=== PATIENT | male | born 1955 | race Caucasian/White ===

== ENCOUNTER 2020-12-21 11:38 | Outpatient (REF) | payer MEDICARE, OTHER, SELFPAY ==
[2020-12-21 13:52] LABS: Alanine Aminotransferase 15 U/L (0-40); Albumin Level 4.2 g/dL (3.5-5.0); Alkaline Phosphatase 78 U/L (39-117); Anion Gap 10 (12-20); Aspartate Amino Transferase 20 U/L (5-37); Bilirubin Total 1.3 mg/dL (0.0-1.0); Blood Urea Nitrogen 18 mg/dL (9-16); Calcium 9.4 mg/dL (8.4-10.2); Carbon Dioxide 32 mmol/L (22-29); Chloride 102 mmol/L (96-108); Estimated Glomerular Filt Rate > 60; Glucose Fasting 106 mg/dL (60-99); Potassium 4.3 mmol/L (3.3-5.1); Rheumatoid Factor < 15.0 IU/mL (<15.0); Sodium 140 mmol/L (135-145); Total Protein 6.7 g/dL (6.5-8.0)
[2020-12-21 14:57] LABS: Erythrocyte Sedimentation Rate 2 MM/HR (0-15)
[2020-12-21 15:16] LABS: Creatinine Urine 282.03 mg/dL; Microalbum/Creatinine Ratio Ur 2.4 ug/mg cr
[2020-12-22 11:37] LABS: Cyclic Citrullinated Peptide <16 UNITS
== END 2020-12-21 11:39 | disposition home or self-care (01) ==
LOC: HO.WFDLDS 11:38
PROVIDERS: Visit Provider Family Medicine
DX: Z00.00 Encounter for general adult medical examination without abnormal findings (principal); R73.01 Impaired fasting glucose; M25.549 Pain in joints of unspecified hand
CPT/HCPCS: 36415; 80053; 82043; 85652; 86200; 86431

== ENCOUNTER 2021-03-07 16:10 | Outpatient (REF) | payer MEDICARE, OTHER, SELFPAY ==
--- NOTE | ~2021-03-07 | XR_ITS ---
EXAMINATION: XR KNEE, RIGHT CLINICAL INFORMATION: Pain COMPARISON: None TECHNIQUE: 2 views of of the right knee. FINDINGS: Bone alignment is normal. No fracture or dislocation is seen. There is mild medial femoral tibial joint space narrowing. Joint spaces are otherwise normal. There is no joint effusion. XR/XR knee RT 2V IMPRESSION: Mild medial femoral tibial joint space narrowing.
== END 2021-03-07 16:11 | disposition home or self-care (01) ==
LOC: HO.XRAY 16:10
PROVIDERS: PCP Family Medicine; Visit Provider Family Medicine
DX: M25.561 Pain in right knee (principal)
CPT/HCPCS: 73560

== ENCOUNTER 2021-05-17 10:44 | Emergency (ER) | payer MEDICARE, OTHER, SELFPAY ==
--- NOTE | ~2021-05-17 | CT_ITS ---
EXAMINATION: CT ABDOMEN AND PELVIS WITHOUT CONTRAST CLINICAL INFORMATION: Left flank pain. Nausea. COMPARISON: None TECHNIQUE: Multidetector volumetric imaging was performed from the superior aspect of the liver through the pubic symphysis. Sagittal and coronal reformatted images were obtained on the technologist's workstation. This CT examination was performed using dose optimization techniques as appropriate, variously including the following: *Automated exposure control *Adjustment of mA and/or kV according to patient size (this includes techniques or standardized protocols for targeted exams where dose is matched to indication/reason for exam; i.e. extremities or head) *Use of iterative reconstruction technique DLP: 505 mGy-cm FINDINGS: LUNG BASES: The visualized lung bases are clear. The descending thoracic aorta appears tortuous. LIVER, GALLBLADDER, AND BILIARY TREE: The liver is normal in size, shape, and attenuation. No focal hepatic lesion or biliary ductal dilatation is present. The gallbladder is unremarkable with no evidence of radiopaque gallstones, gallbladder wall thickening, or obvious pericholecystic inflammatory changes. PANCREAS: There is fatty infiltration of the head and body the pancreas. Pancreas is otherwise unremarkable. SPLEEN: Unremarkable. ADRENAL GLANDS: Unremarkable. KIDNEYS AND URETERS: The kidneys are normal in size, shape, and attenuation. No hydronephrosis, hydroureter, or calculi seen. No perinephric stranding. BLADDER: Unremarkable. GASTROINTESTINAL TRACT: The small and large bowel are unremarkable. The appendix is is not seen. The stomach is unremarkable. ABDOMINAL WALL: There is a small umbilical hernia containing fat. LYMPH NODES: Normal. VASCULAR: Unremarkable. PELVIC VISCERA: Unremarkable. OSSEOUS STRUCTURES: There are degenerative changes of the spine. CT/CT abdomen pelvis wo con IMPRESSION: No stone or hydronephrosis seen.
[2021-05-17 11:27] VITALS: BP 135/72; PULSE 58; TEMP 35.2; O2SAT 99; BMI 26.6
--- NOTE | 2021-05-17 14:57 | ECG_ITS ---
Test Reason : GEN MED Blood Pressure : / mmHG Vent. 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
--- NOTE | 2021-05-17 14:58 | ED_ITS ---
HPI - General Adult General Chief complaint: General Medical Stated complaint: flank pain, nausea, weakness Time Seen by Provider: 05/17/21 14:51 Source: patient and family Mode of arrival: ambulatory Limitations: no limitations History of Present Illness HPI narrative: 65 y/o male with history of GERD presents to the ER from home c/o acute onset of severe left sided flank pain that awoke him from sleep at 8:30am. He reports it is throbbing and intermittently is very sharp and goes from a 7/10 to 10/10. It is associated with nausea but no vomiting. He has not eaten yet today due to the pain. He is belching frequently. When the pain started he took motrin for possible muscle spasm as well as prilosec and TUMS for indigestion. He had some chest discomfort with belching but no chest pain. No SOB, diaphoresis. The pain is located in his left middle back and shoots through to the front of his abdomen. It is worse with movement and he cannot find a comfortable position. He denies urinary symptoms, fever, chills, diarrhea. Last BM yesterday and was normal. 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 MD complaint: left flank pain Onset (ago): hour(s) (7) Location: abdomen Radiation: abdomen Severity: severe Severity scale (1-10): 10 Quality: stabbing and sharp Pain Consistency: constant Relieving factors: none Exacerbating factors: movement Associated symptoms: loss of appetite and nausea/vomiting Treatments prior to arrival: none Related Data Home Medications Medication Instructions Recorded Confirmed omeprazole 20 mg capsule,delayed 20 mg PO DAILY 12/21/20 release Previous Rx's Medication Instructions Recorded betamethasone valerate 0.1 % 1 appl TOPICAL BID 14 Days #45 g 03/07/21 topical cream ibuprofen 800 mg tablet 800 mg PO TID PRN 30 Days #90 tab 04/06/21 sildenafil 100 mg tablet 100 mg PO DAILY PRN 28 Days #10 tab 04/26/21 cyclobenzaprine 10 mg PO TID PRN #10 tab 05/17/21 hydrocodone-acetaminophen 1 tab PO Q8H PRN #5 tab 05/17/21 ibuprofen 600 mg PO Q8H PRN #15 tab 05/17/21 lidocaine [Lidoderm] 1 patch TOPICAL DAILY #15 ea 05/17/21 Allergies Allergy/AdvReac Type Severity Reaction Status Date / Time bee venom protein (honey bee) Allergy Unknown swelling Verified 03/07/21 13:25 Review of Systems Review of Systems: Constitutional: No Fever, No Chills ENT/Mouth: No sore throat, No Rhinorrhea, No Swallowing Difficulty Cardiovascular: No Chest Pain, No SOB, No Orthopnea, No Edema Respiratory: No Cough, No Sputum, No Wheezing, No dyspnea Gastrointestinal: + Nausea, No Vomiting, No Diarrhea, + abdominal Pain, No Hematochezia, No Melena Genitourinary: No Dysuria, No Urinary Frequency, No Hematuria Musculoskeletal: No joint pain, No Myalgias Skin: No Skin Lesions, No rash Neuro: No Weakness, No Numbness, No Dizziness, No Headache Psych: No Anxiety/Panic, No Depression Heme/Lymph: No Bruising, No Lymphadenopathy Endocrine: No Polyuria, No Polydipsia PMFSH Past Medical History Attestation statement: The following information was validated with the patient. Medical History HTN (hypertension) Surgical History (Updated 12/14/20 @ 12:29 by KEEGAN Hutchinson, [employer]) History of sinus surgery History of surgery History of tonsillectomy Family History Family History (Updated 12/14/20 @ 12:31 by Jackie Gibbs, KEEGAN, [employer]PLIER) Father Leukemia CVD (cardiovascular disease) Mother Leukemia Sister No problems noted. Son No problems noted. Son No problems noted. Daughter No problems noted. Brother Stroke Brother No problems noted. Brother No problems noted. Brother No problems noted. Brother No problems noted. Social History Social History Advance Directives: No Advance Directives Information Provided: Yes Physical Exam Vital Signs: Vital Signs: Last Vital Signs Temp 95.4 F L 05/17/21 11:27 Pulse 58 05/17/21 11:27 BP 135/72 05/17/21 11:27 Pulse Ox 99 05/17/21 11:27 Body Mass Index 26.6 Appearance: Alert. Oriented X3. No acute distress. Eyes: Pupils equal, round and reactive to light. ENT: Pharynx normal. Neck: Normal inspection. Neck supple. CVS: Normal heart rate and rhythm. Pulses normal. Respiratory: No respiratory distress. Breath sounds normal. Abdomen: Soft and nontender. +BS x4. Left sided CVA tenderness. Skin: Skin warm and dry. Normal skin color. Normal skin turgor. No rashes. Extremities: No lower extremity edema. Neuro: Oriented X 3. No motor deficit. No sensory deficit. Course Course Course Narrative: 65 y/o male presenting with 7 hours of left sided flank pain associated with indigestion and nausea. Will get labs, EKG and CT scan for further evaluation. Pain currently 05/14. IVF, morphine and zofran ordered for now. Will reassess. Dispo pending results and improvement. Suspect nephrolithasis vs MSK pain. Reevaluation(s) Reevaluation #1: Labs are normal. CT scan is normal. EKG ok and trop negative. Pain is most likely MSK in nature. Will treat with NSAID, muscle relaxer, lidoderm and PRN vicoden. Recommend outpatient follow up. Patient agrees with plan. Medical Decision Making Lab Data Result diagrams: 05/17/21 15:14 05/17/21 15:14 Labs: Lab Results 05/17/21 05/17/21 05/17/21 Range/Units 15:14 15:14 15:14 WBC 7.1 (4.8-10.8) X10*3/uL RBC 5.27 (4.60-5.80) X10*6/uL Hgb 14.9 (14.0-18.0) g/dl Hct 44.8 (42-52) % MCV 85.0 (80-98) fL MCH 28.3 (27.0-33.0) pg MCHC 33.3 (31.0-36.0) g/dl RDW 14.6 (11.0-16.0) % Plt Count 262 (160-400) X10*3/uL MPV 9.6 (9.4-12.4) fL Immature Gran % (Auto) 0.1 (0.0-0.4) % Neut % (Auto) 85.6 H (45-73) % Lymph % (Auto) 9.7 L (20-40) % [place] % (Auto) 4.2 (2-11) % Eos % (Auto) 0.1 (0-4) % Baso % (Auto) 0.3 (0-2) % Lymph # (Auto) 0.7 L (1.2-4.9) X10*3/uL [place] # (Auto) 0.3 (0.1-1.2) X10*3/uL Eos # (Auto) 0.0 (0.0-0.4) X10*3/uL Baso # (Auto) 0.0 (0.0-0.2) X10*3/uL Abs Immat Gran (auto) 0.01 (0.00-0.03) X10*3/uL Absolute Neuts (auto) 6.1 (2.0-8.3) X10*3/uL Absolute Nucleated RBC 0.000 (0.0-0.012) X10*3/uL Nucleated RBC % (auto) 0.0 (0.0-0.2) /100WBC Sodium 138 (135-145) mmol/L Potassium 4.7 (3.3-5.1) mmol/L Chloride 103 (96-108) mmol/L Carbon Dioxide 23 (22-29) mmol/L Anion Gap 17 (12-20) BUN 19 H (9-16) mg/dL Creatinine 0.94 (0.5-1.4) mg/dL Estim Creat Clear Calc 76.2 Estimated GFR > 60 Random Glucose 113 (60-115) mg/dL Calcium 9.9 (8.4-10.2) mg/dL Magnesium 2.0 (1.6-2.6) mg/dL Total Bilirubin 1.9 H (0.0-1.0) mg/dL Direct Bilirubin 0.6 H (0.0-0.5) mg/dL AST 25 (5-37) U/L ALT 16 (0-40) U/L Alkaline Phosphatase 78 (39-117) U/L Troponin I High Sens < 3.5 (<3.5-35.0) ng/L Total Protein 6.9 (6.5-8.0) g/dL Albumin 4.2 (3.5-5.0) g/dL Urine Color Urine Appearance Urine pH (5.0-8.0) Ur Specific [place] (1.005-1.025) Urine Protein (NEG-TRACE) MG/DL Urine Glucose (UA) (NEG) MG/DL Urine Ketones (NEG) MG/DL Urine Blood (NEG) Urine Nitrite (NEG) Ur Leukocyte Esterase (NEG) 05/17/21 Range/Units 16:42 WBC (4.8-10.8) X10*3/uL RBC (4.60-5.80) X10*6/uL Hgb (14.0-18.0) g/dl Hct (42-52) % MCV (80-98) fL MCH (27.0-33.0) pg MCHC (31.0-36.0) g/dl RDW (11.0-16.0) % Plt Count (160-400) X10*3/uL MPV (9.4-12.4) fL Immature Gran % (Auto) (0.0-0.4) % Neut % (Auto) (45-73) % Lymph % (Auto) (20-40) % [place] % (Auto) (2-11) % Eos % (Auto) (0-4) % Baso % (Auto) (0-2) % Lymph # (Auto) (1.2-4.9) X10*3/uL [place] # (Auto) (0.1-1.2) X10*3/uL Eos # (Auto) (0.0-0.4) X10*3/uL Baso # (Auto) (0.0-0.2) X10*3/uL Abs Immat Gran (auto) (0.00-0.03) X10*3/uL Absolute Neuts (auto) (2.0-8.3) X10*3/uL Absolute Nucleated RBC (0.0-0.012) X10*3/uL Nucleated RBC % (auto) (0.0-0.2) /100WBC Sodium (135-145) mmol/L Potassium (3.3-5.1) mmol/L Chloride (96-108) mmol/L Carbon Dioxide (22-29) mmol/L Anion Gap (12-20) BUN (9-16) mg/dL Creatinine (0.5-1.4) mg/dL Estim Creat Clear Calc Estimated GFR Random Glucose (60-115) mg/dL Calcium (8.4-10.2) mg/dL Magnesium (1.6-2.6) mg/dL Total Bilirubin (0.0-1.0) mg/dL Direct Bilirubin (0.0-0.5) mg/dL AST (5-37) U/L ALT (0-40) U/L Alkaline Phosphatase (39-117) U/L Troponin I High Sens (<3.5-35.0) ng/L Total Protein (6.5-8.0) g/dL Albumin (3.5-5.0) g/dL Urine Color YELLOW Urine Appearance CLEAR Urine pH 6.0 (5.0-8.0) Ur Specific [place] 1.025 (1.005-1.025) Urine Protein NEG (NEG-TRACE) MG/DL Urine Glucose (UA) NEG (NEG) MG/DL Urine Ketones 15 (NEG) MG/DL Urine Blood NEG (NEG) Urine Nitrite NEG (NEG) Ur Leukocyte Esterase NEG (NEG) ECG Data Attestation: I personally reviewed and interpreted this ECG as follows: Interpretation: sinus bradycardia, HR 52 bpm, normal ME interval, isolated t- wave inversion in lead III, no ST segment elevations or depressions. Discharge Plan Discharge Clinical Impression: Acute left-sided thoracic back pain Patient Disposition: Home, Self-Care Instructions: Muscle Spasm (ED), Back Pain (ED) Additional Instructions: Your lab workup today was normal. Your CT scan was also normal. It is most likely that your pain is muscular in nature. Recommend REST. No bending, lifting or twisting. Use ice several times per day for 20 minutes at a time for the next 48 hours and then change to heat. Take medications as prescribed to help with pain and discomfort. Follow up with your Primary Care Doctor this week. If your pain worsens, if you develop any new or worsening symptoms call 911 or come back to the ER for further evaluation. Prescriptions: New cyclobenzaprine 10 mg tablet 10 mg PO TID PRN (Reason: muscle spasm) Qty: 10 RF: 0 ibuprofen 600 mg tablet 600 mg PO Q8H PRN (Reason: pain) Qty: 15 RF: 0 lidocaine [Lidoderm] 5 % adhesive patch,medicated 1 patch topical DAILY Qty: 15 RF: 0 hydrocodone-acetaminophen 10-325 mg tablet 1 tab PO Q8H PRN (Reason: pain) Qty: 5 RF: 0 No Action ibuprofen 800 mg tablet 800 mg PO TID PRN (Reason: pain) 30 Days Qty: 90 RF: 1 sildenafil 100 mg tablet 100 mg PO DAILY PRN (Reason: sexual activity) 28 Days Qty: 10 RF: 6 omeprazole 20 mg capsule,delayed release(DR/EC) 20 mg PO DAILY RF: 0 betamethasone valerate 0.1 % cream 1 appl topical BID 14 Days Qty: 45 RF: 0 Referrals: Mo Alston MD [Primary Care Provider] - 2 days
[2021-05-17] MEDS: ondansetron HCL 4 MG/2 ML VIAL IVPUSH (15:20)
[2021-05-17] MEDS: Morphine Sulfate 4 MG/ML CARTRIDGE IVPUSH (15:20)
[2021-05-17] MEDS: 0.9 % Sodium Chloride 1,000 ML 999 ML IVCONT (15:21)
[2021-05-17 15:23] LABS: MANUAL DIFF FLAG NO
[2021-05-17 15:28] LABS: Basophils Percent Auto 0.3 % (0-2); Eosinophils Percent Auto 0.1 % (0-4); Hematocrit 44.8 % (42-52); Hemoglobin 14.9 g/dl (14.0-18.0); Imm Gran Abs Auto 0.01 X10*3/uL (0.00-0.03); Imm Gran Pct Auto 0.1 % (0.0-0.4); Lymphocytes Absolute Auto 0.7 X10*3/uL (1.2-4.9); Lymphocytes Percent Auto 9.7 % (20-40); Mean Corpuscular HGB Conc 33.3 g/dl (31.0-36.0); Mean Corpuscular Hemoglobin 28.3 pg (27.0-33.0); Mean Platelet Volume 9.6 fL (9.4-12.4); Monocytes Absolute Auto 0.3 X10*3/uL (0.1-1.2); Monocytes Percent Auto 4.2 % (2-11); Neutrophils Absolute Auto 6.1 X10*3/uL (2.0-8.3); Neutrophils Percent Auto 85.6 % (45-73); Platelet Count 262 X10*3/uL (160-400); Red Blood Count 5.27 X10*6/uL (4.60-5.80); Red Cell Distribution Width 14.6 % (11.0-16.0); White Blood Count 7.1 X10*3/uL (4.8-10.8)
[2021-05-17 16:01] LABS: Troponin-I High Sensitivity < 3.5 ng/L (<3.5-35.0)
[2021-05-17 16:10] LABS: Alanine Aminotransferase 16 U/L (0-40); Albumin Level 4.2 g/dL (3.5-5.0); Alkaline Phosphatase 78 U/L (39-117); Anion Gap 17 (12-20); Aspartate Amino Transferase 25 U/L (5-37); Bilirubin Direct 0.6 mg/dL (0.0-0.5); Bilirubin Total 1.9 mg/dL (0.0-1.0); Blood Urea Nitrogen 19 mg/dL (9-16); Calcium 9.9 mg/dL (8.4-10.2); Carbon Dioxide 23 mmol/L (22-29); Chloride 103 mmol/L (96-108); Creatinine Clr Calc Pharmacy 76.2; Estimated Glomerular Filt Rate > 60; Glucose Random 113 mg/dL (60-115); Potassium 4.7 mmol/L (3.3-5.1); Sodium 138 mmol/L (135-145); Total Protein 6.9 g/dL (6.5-8.0)
[2021-05-17] MEDS: Lidocaine 4 % Patch ADH..PATCH 1 PATCH TRANSDERMA (16:44)
[2021-05-17] MEDS: Ketorolac Tromethamine 30 MG/ML VIAL IVPUSH (16:44)
[2021-05-17 16:52] LABS: Glucose Urine UA NEG (NEG); Leukocyte Esterase Urine NEG (NEG); Nitrite Urine NEG (NEG); Specific Gravity - Urine 1.025 (1.005-1.025); Urine Blood NEG (NEG); Urine Ketones 15 MG/DL (NEG); Urine Protein NEG (NEG-TRACE)
[2021-05-17 16:53] LABS: Appearance Urine CLEAR; Color Urine YELLOW
[2021-05-17 17:14] VITALS: BP 129/77; PULSE 63; RESP 15; TEMP 36.6; O2SAT 99
== END 2021-05-17 17:37 | disposition home or self-care (01) ==
PROVIDERS: Physician Assistant; Emergency Provider Emergency Medicine; PCP Family Medicine
DX: M54.6 Pain in thoracic spine (principal); I10 Essential (primary) hypertension
CPT/HCPCS: 36415; 74176; 80048; 80076; 81003; 83735; 84484; 85025; 93005; 96361; 96374; 96375; 99284; J1885; J2270; J2405

== ENCOUNTER 2021-06-07 10:30 | Outpatient (REF) | payer MEDICARE, OTHER, SELFPAY | END 2021-06-07 10:31 | disposition home or self-care (01) | LOC: HO.10HDLNP 10:30 | PROVIDERS: Visit Provider Family Medicine | DX: Z13.89 Encounter for screening for other disorder (principal) ==

== ENCOUNTER → 2021-11-08 10:38 | Outpatient (BNVA) | payer MEDICARE, OTHER, SELFPAY | PROVIDERS: PCP Family Medicine; Referring Provider Family Medicine; Visit Provider Psychiatry & Neurology Neurology | DX: G47.30 Sleep apnea, unspecified (principal); R06.83 Snoring | CPT/HCPCS: 99202 ==

== ENCOUNTER → 2021-11-14 14:55 | Outpatient (REF) | payer MEDICARE, OTHER, SELFPAY | LOC: HO.SL 14:55 | PROVIDERS: PCP Family Medicine; Visit Provider Psychiatry & Neurology Neurology | DX: G47.33 Obstructive sleep apnea (adult) (pediatric) (principal); G47.30 Sleep apnea, unspecified | CPT/HCPCS: 95806 ==

== ENCOUNTER 2021-11-30 10:02 | Outpatient (REF) | payer MEDICARE, OTHER, SELFPAY ==
[2021-11-30 10:59] LABS: Estimated Average Glucose 114 mg/dL; Hemoglobin A1c % 5.6 %
[2021-11-30 11:10] LABS: Alanine Aminotransferase 21 U/L (0-40); Albumin Level 4.2 g/dL (3.5-5.0); Alkaline Phosphatase 83 U/L (39-117); Anion Gap 11 (12-20); Aspartate Amino Transferase 25 U/L (5-37); Bilirubin Total 1.3 mg/dL (0.0-1.0); Blood Urea Nitrogen 21 mg/dL (9-16); Calcium 9.6 mg/dL (8.4-10.2); Carbon Dioxide 31 mmol/L (22-29); Chloride 101 mmol/L (96-108); Estimated Glomerular Filt Rate > 60; Glucose Random 102 mg/dL (60-115); Potassium 3.9 mmol/L (3.3-5.1); Sodium 139 mmol/L (135-145); Total Protein 6.7 g/dL (6.5-8.0)
[2021-11-30 14:47] LABS: Creatinine Urine 246.57 mg/dL; Microalbum/Creatinine Ratio Ur 2.8 ug/mg cr
== END 2021-11-30 10:03 | disposition home or self-care (01) ==
LOC: HO.10HDL 10:02
PROVIDERS: Visit Provider Family Medicine
DX: R73.01 Impaired fasting glucose (principal); I10 Essential (primary) hypertension
CPT/HCPCS: 36415; 80053; 82043; 83036

== ENCOUNTER → 2022-01-10 15:22 | Outpatient (BNVA) | payer MEDICARE, OTHER, SELFPAY | PROVIDERS: PCP Family Medicine; Referring Provider Family Medicine; Visit Provider Psychiatry & Neurology Neurology | DX: G47.33 Obstructive sleep apnea (adult) (pediatric) (principal) | CPT/HCPCS: 99212 ==

== ENCOUNTER 2022-03-08 12:33 | Outpatient (REF) | payer MEDICARE, OTHER, SELFPAY ==
[2022-03-08 13:49] LABS: Cholesterol 180 mg/dL; HDL Cholesterol 44 mg/dL; LDL Cholesterol Calculated 101 mg/dl; Triglycerides 177 mg/dL
== END 2022-03-08 12:34 | disposition home or self-care (01) ==
LOC: HO.10HDL 12:33
PROVIDERS: Visit Provider Family Medicine
DX: Z00.00 Encounter for general adult medical examination without abnormal findings (principal)
CPT/HCPCS: 36415; 80061

== ENCOUNTER → 2022-07-18 14:51 | Outpatient (BNVA) | payer MEDICARE, OTHER, SELFPAY | PROVIDERS: PCP Family Medicine; Visit Provider Psychiatry & Neurology Neurology | DX: G47.33 Obstructive sleep apnea (adult) (pediatric) (principal) | CPT/HCPCS: 99212 ==

== ENCOUNTER 2022-11-27 11:15 | Outpatient (REF) | payer MEDICARE, OTHER, SELFPAY ==
[2022-11-27 11:42] LABS: Appearance Urine Clear; Color Urine Yellow; Glucose Urine UA Negative (Negative); Leukocyte Esterase Urine Negative (Negative); Nitrite Urine Negative (Negative); Specific Gravity - Urine 1.025 (1.005-1.025); Urine Blood Negative (Negative); Urine Ketones Negative (Negative); Urine Protein Negative (Neg-Trace)
[2022-11-27 13:24] LABS: Creatinine Urine 143.92 mg/dL; Microalbumin Urine < 5.0 mg/L
[2022-11-27 13:32] LABS: Alanine Aminotransferase 19 U/L (0-40); Albumin Level 4.1 g/dL (3.5-5.0); Alkaline Phosphatase 74 U/L (39-117); Anion Gap 12 (12-20); Aspartate Amino Transferase 22 U/L (5-37); Bilirubin Total 1.5 mg/dL (0.0-1.0); Blood Urea Nitrogen 25 mg/dL (9-16); Calcium 9.3 mg/dL (8.4-10.2); Carbon Dioxide 29 mmol/L (22-29); Chloride 106 mmol/L (96-108); Cholesterol 153 mg/dL; Estimated Glomerular Filt Rate > 60; Glucose Fasting 106 mg/dL (60-99); HDL Cholesterol 38 mg/dL; LDL Cholesterol Calculated 90 mg/dl; Potassium 4.4 mmol/L (3.3-5.1); Prostate Specific Antigen Scr 0.58 ng/mL (<0.05-4.0); Sodium 143 mmol/L (135-145); TSH reflex Free T4 1.68 uIU/mL (0.32-4.0); Total Protein 6.3 g/dL (6.5-8.0); Triglycerides 128 mg/dL
== END 2022-11-27 11:16 | disposition home or self-care (01) ==
LOC: HO.LAB 11:15
PROVIDERS: PCP Family Medicine; Visit Provider Family Medicine
DX: Z00.00 Encounter for general adult medical examination without abnormal findings (principal); Z12.5 Encounter for screening for malignant neoplasm of prostate; I10 Essential (primary) hypertension
CPT/HCPCS: 36415; 80053; 80061; 81003; 82043; 84153; 84443

== ENCOUNTER 2022-12-14 08:58 | Outpatient (REF) | payer MEDICARE, OTHER, SELFPAY ==
--- NOTE | ~2022-12-14 | US_ITS ---
EXAMINATION: US ABDOMEN LIMITED CLINICAL INFORMATION: Other intra-abdominal and pelvic swelling, mass and lump. COMPARISON: None TECHNIQUE: Real-time imaging of the umbilicus. FINDINGS: A fat-containing umbilical hernia defect is seen with neck measuring 7 mm. No mass or fluid collection is seen. There is no lymphadenopathy. US/US abdomen limited IMPRESSION: Correlating with the CT findings of 05/17/2021, a 7 mm fat-containing umbilical hernia defect is noted.
== END 2022-12-14 08:59 | disposition home or self-care (01) ==
LOC: HO.US 08:58
PROVIDERS: Visit Provider Family Medicine
DX: R19.09 Other intra-abdominal and pelvic swelling, mass and lump (principal)
CPT/HCPCS: 76705

== ENCOUNTER 2023-01-24 14:52 | Outpatient (REF) | payer MEDICARE, OTHER, SELFPAY | END 2023-01-24 14:53 | disposition home or self-care (01) | LOC: HO.SH 14:52 | PROVIDERS: Visit Provider Family Medicine | DX: Z01.118 Encounter for examination of ears and hearing with other abnormal findings (principal); H90.3 Sensorineural hearing loss, bilateral; H93.13 Tinnitus, bilateral | CPT/HCPCS: 92557 ==

== ENCOUNTER → 2023-02-06 15:22 | Outpatient (BNVA) | payer MEDICARE, OTHER, SELFPAY | PROVIDERS: PCP Family Medicine; Visit Provider Surgery | DX: K42.9 Umbilical hernia without obstruction or gangrene (principal) | CPT/HCPCS: 99202 ==

== ENCOUNTER 2023-04-16 05:49 | Day surgery (SDC) | payer MEDICARE, OTHER, SELFPAY ==
[2023-04-11 15:33] VITALS: BMI 27.3
--- NOTE | 2023-04-13 09:52 | HO.ANESPROP2 ---
Documented by User: Abbie Hamilton NP 04/13/23 09:55 HPI - Anesthesia Eval Consult details Narrative: 67yo M for Hernia Repair Umbilical w/mesh PMFSH Active Problems Active Problems: All Active Problems (Updated 04/11/23 @ 15:33 by Jessie Osman RN) Elevated fasting blood sugar (Acute) Hand joint pain (Acute) Paresthesias (Acute) Right medial knee pain (Acute) Rash (Acute) Lower thoracic back pain (Acute) Sleep apnea (Acute) Snoring (Acute) Witnessed apneic spells (Acute) Adult general medical examination (Acute) Screening for colon cancer (Acute) Screening for prostate cancer (Acute) Change in hearing (Acute) GERD (gastroesophageal reflux disease) (Acute) Dermatitis (Acute) Umbilical hernia (Acute) Low HDL (under 40) (Acute) Plantar fasciitis (Acute) Obstructive sleep apnea (Acute) Past Medical History Medical History (Updated 04/16/23 @ 07:37 by Travis Villarreal MD) Elevated fasting blood sugar GERD (gastroesophageal reflux disease) HTN (hypertension) Obstructive sleep apnea Plantar fasciitis, bilateral Umbilical hernia Family History Family History Father Leukemia CVD (cardiovascular disease) Mother Leukemia Sister No problems noted. Son No problems noted. Son No problems noted. Daughter No problems noted. Brother Stroke Brother No problems noted. Brother No problems noted. Brother No problems noted. Brother No problems noted. Surgical History Surgical History (Updated 04/11/23 @ 15:33 by Jessie Osman RN) H/O colonoscopy History of appendectomy (1973) History of sinus surgery History of surgery History of tonsillectomy History of uvulopalatopharyngoplasty Social History Social History Housing: House Are you a primary medicare contact specialist to a significant other at home: No Do you presently have visiting nurse or other home services: No Alcohol intake: never Patient Tobacco Use Status: Never used Tobacco e-Cigarette/Vaping Use: Never Used Second Hand Smoke Exposure: No service: No Current occupational status: retired Current occupational exposures/hazards: No Cognitive needs: No Hearing needs: No Vision needs: No Meds Allergies Allergy/AdvReac Type Severity Reaction Status Date / Time bee venom protein (honey bee) Allergy Intermediate swelling Verified 04/11/23 15:21 Exam Exam Date and Time: April 13, 2023 0952 Height,Weight and Vital Signs: Height 5 ft 9 in Weight 83.915 kg Pertinent Lab Results Pertinent Lab Results: Laboratory Tests 05/17/21 11/27/22 15:14 11:23 WBC 7.1 Hgb 14.9 Hct 44.8 Plt Count 262 Sodium 143 Potassium 4.4 Chloride 106 Carbon Dioxide 29 BUN 25 H Creatinine 1.17 Assessment and Plan Assessment Anesthesia Assessment: Chart Reviewed Documented by User: John Snyder MD 04/16/23 10:29 [facility] Past Medical History Medical History (Updated 04/16/23 @ 07:37 by Travis Villarreal MD) Elevated fasting blood sugar GERD (gastroesophageal reflux disease) HTN (hypertension) Obstructive sleep apnea Plantar fasciitis, bilateral Umbilical hernia Functional capacity: independent ambulation Family History Family History Father Leukemia CVD (cardiovascular disease) Mother Leukemia Sister No problems noted. Son No problems noted. Son No problems noted. Daughter No problems noted. Brother Stroke Brother No problems noted. Brother No problems noted. Brother No problems noted. Brother No problems noted. Family history of problems with anesthesia: No Surgical History Surgical History (Updated 04/11/23 @ 15:33 by Jessie Osman RN) H/O colonoscopy History of appendectomy (1973) History of sinus surgery History of surgery History of tonsillectomy History of uvulopalatopharyngoplasty History of Problems with Anesthesia: No Social History Social History Housing: House Are you a primary medicare contact specialist to a significant other at home: No Do you presently have visiting nurse or other home services: No Alcohol intake: never Patient Tobacco Use Status: Never used Tobacco e-Cigarette/Vaping Use: Never Used Second Hand Smoke Exposure: No service: No Current occupational status: retired Current occupational exposures/hazards: No Cognitive needs: No Hearing needs: No Vision needs: No Meds Allergies Allergy/AdvReac Type Severity Reaction Status Date / Time bee venom protein (honey bee) Allergy Intermediate swelling Verified 04/11/23 15:21 Exam Airway Mallampati Class: III TM Dist: >3cm Neck ROM: Full Loose/Missing/Broken Teeth: Yes (fillings ) Assessment and Plan Assessment Anesthesia Assessment: Anesthesia Plan Discussed Final Anesthetic Review Family History of Problems with Anesthesia: No History of Problems with Anesthesia: No NPO: Yes ASA Class: II Final Preanesthetic Review: Meds/Allgs Chart Reviewed, Consent Obtained/Reviewed and Anes Risks/Benef Reviewed Patient Risk: Intermediate Procedure Risk: Intermediate Anesthetic Plan Anesthetic Plan: GA Disposition: Standard PACU
[2023-04-16 06:09] VITALS: BP 120/84; PULSE 60; RESP 16; TEMP 36.3; O2SAT 96; BMI 27.3
[2023-04-16] MEDS: Lactated Ringers 1,000 ML 100 ML IVCONT (06:30)
--- NOTE | 2023-04-16 07:15 | MHC.SHP ---
Pre-Procedural Eval Section A Date of Service: 04/16/23 The patient is an INPATIENT: No Changes since office visit: Yes Patient answered all questions; No Cold of Flu in the past 2 weeks, No New Medical Problems and No Changes in Medication The History & Physical has been completed within 30 days and I have reviewed it.: No Section B Chief Complaint: Umbilical hernia without obstruction or gangrene Details of Present Illness: no change in symptoms Relevant Family History (Specify if Yes): No Relevant Social History: None Present Medications: see Short Stay Collaborative assessment Medical History: No relevant PMH History of Previous Operations: No relevant previous surgery Allergies: Allergies Allergy/AdvReac Type Severity Reaction Status Date / Time bee venom protein (honey bee) Allergy Intermediate swelling Verified 04/11/23 15:21 Review of Systems Sugical H&P ROS: Negative: Constitution, Cardiovascular, Respiratory, Neurological, Psychiatric, Hem-Onc, Allergic/Immunologic, Gastrointestinal, Genitourinary, Musculoskeletal, Integumentary, Endocrine and Eyes/Ears/Nose/Throat Exam Surgical H&P Exam: Normal: HEENT, Normal: Heart, Normal: Lungs, Normal: Extremities, Normal: Abdomen, Normal: Skin and Normal: Neurological Plan Diagnosis/Plan: Unchanged I have reviewed the history and physical and performed a pertinent physical examination on my patient. No changes have occurred unless specified. Time Spent With Patient Time: Total time managing care of this patient today ____ minutes.
--- NOTE | 2023-04-16 07:39 | W.PM.OPN ---
Operative Note Operative Note Date of Service: 04/16/23 Narrative: Preoperative diagnosis:Umbilical hernia Postoperative diagnosis:same Procedure:Repair of Umbilical hernia with mesh Surgeon: Travis Villarreal MD Technician Support Association: SHRUTHI Strong Anesthesia:General LMA Indications for procedure:67 year old male with a symptomatic umbilical hernia Operative findings:small 1 cm umbilical hernia Specimen:none Estimated blood loss: Less than 1 mL Complications: none Procedure details: patient was brought to the OR placed in a supine position. After administering general anesthesia the patient's abdomen was prepped with ChloraPrep and draped in a sterile fashion. A surgical time-out was called and the consent confirmed. Patient received preoperative antibiotics and Venodyne boots were in place. Local anesthesia was infiltrated in a curvilinear fashion above the umbilicus. Incision was then made with a 15 blade and subcutaneous tissue up to the hernia sac. The the umbilical skin was elevated off the fascia using electrocautery. A 1 cm non incarcerated umbilical hernia was identified. The edges of the fascia were identified and grasped with Allis clamps. Blunt dissection was then used to dissect a preperitoneal space using a Ray-Lui sponge. A 4.3 cm round Ventralex mesh was then obtained. This was deployed within the preperitoneal space and secure the corners using a 0 Tycron suture. The fascia was then closed over the mesh using afeynl-bi-syuma 0 Tycron sutures. Wounds were then irrigated with saline solution and suctioned dry. Umbilical skin was then reattached to the fascia using a 3-0 Polysorb suture. Dermis was then reapproximated in a subcuticular interrupted fashion. Steri-Strips, 2 x 2 gauze and Tegaderm were then applied. The patient tolerated the procedure well. Sponge, instrument, and needle counts reported as correct. The patient was transferred to PACU in stable condition.
[2023-04-16 08:25] VITALS: BP 131/76; BP 135/80; PULSE 66; PULSE 78; RESP 16; RESP 18; TEMP 36.2; O2SAT 100
[2023-04-16 08:30] VITALS: BP 111/84; PULSE 66; RESP 18; O2SAT 100
[2023-04-16 08:35] VITALS: BP 117/62; PULSE 72; RESP 16; TEMP 36.2; O2SAT 99
[2023-04-16 08:50] VITALS: BP 127/82; PULSE 74; RESP 16; O2SAT 96
[2023-04-16 09:05] VITALS: BP 126/82; PULSE 59; RESP 16; TEMP 36.2; O2SAT 96
== END 2023-04-16 09:40 | disposition home or self-care (01) ==
PROVIDERS: PCP Family Medicine; Visit Provider Surgery
PROC: (CPT 49591; principal; 2023-04-16 07:30)
DX: K42.9 Umbilical hernia without obstruction or gangrene (principal); I10 Essential (primary) hypertension; G47.33 Obstructive sleep apnea (adult) (pediatric); Z79.1 Long term (current) use of non-steroidal anti-inflammatories (NSAID); Z79.899 Other long term (current) drug therapy
CPT/HCPCS: 49591; C1781; C9088; J0690; J1100; J2250; J2405; J3010

== ENCOUNTER → 2023-05-02 10:49 | Outpatient (BNVA) | payer MEDICARE, OTHER, SELFPAY | PROVIDERS: PCP Family Medicine; Visit Provider Surgery ==

== ENCOUNTER 2023-06-01 09:17 | Outpatient (AMB) | payer MEDICARE, OTHER, SELFPAY ==
--- NOTE | 2023-06-01 09:21 | A.OFFVIS_ITS ---
Intake Vital Signs 06/01/23 09:38 Height 5 ft 9 in Weight 184 lb 11.958 oz BMI 27.3 BP 110/70 Blood Pressure Location Lt brachial Position Sitting Intake Visit Reasons: 1 mth follow up umbilical hernia repair Intake Note: Patient is seen in office for one month follow up visit, post umbilical hernia repair. Patient c/o: denies any concerns at the time of visit [employer] Executive Director Required: No Accompanied by: Self / Same As Patient Allergies bee venom protein (honey bee) Allergy (Intermediate, Verified 06/01/23 09:22) swelling Medication List - Last Reconciled 06/01/23 by Travis Villarreal MD comp.stocking,knee,long,medium 30-40 mmHg Daily As directed, 90 days ibuprofen 800 mg PO TID PRN 30 days omeprazole 20 mg PO DAILY 90 days sildenafil 100 mg PO DAILY PRN 28 days HPI HPI Comments History of Present Illness Details Patient returns 1 month following repair of an umbilical hernia with mesh. He tolerated the procedure well and his wounds are healing nicely. He did have a scab at lifted off 2 days ago. He denies any pain for lump. [facility] Medical History (Updated 04/16/23 @ 07:37 by Travis Villarreal MD) Elevated fasting blood sugar GERD (gastroesophageal reflux disease) HTN (hypertension) Obstructive sleep apnea Plantar fasciitis, bilateral Umbilical hernia Surgical History H/O colonoscopy H/O umbilical hernia repair (04/16/23) History of appendectomy (1973) History of sinus surgery History of surgery History of tonsillectomy History of uvulopalatopharyngoplasty Family History Father Leukemia CVD (cardiovascular disease) Mother Leukemia Sister No problems noted. Son No problems noted. Son No problems noted. Daughter No problems noted. Brother Stroke Brother No problems noted. Brother No problems noted. Brother No problems noted. Brother No problems noted. Social History Housing: House Are you a primary healthcare educator to a significant other at home: No Do you presently have visiting nurse or other home services: No Alcohol intake: never Patient Tobacco Use Status: Never used Tobacco e-Cigarette/Vaping Use: Never Used Second Hand Smoke Exposure: No service: No Current occupational status: retired Current occupational exposures/hazards: No Cognitive needs: No Hearing needs: No Vision needs: No Physical Exam Vital Signs: Last Vital Signs BP 110/70 06/01/23 09:38 BMI result Body Mass Index 27.3 Const General: healthy appearing and no acute distress Nutritional Appearance: well nourished Orientation/consciousness: patient oriented x3 Resp Effort & Inspection: normal respiratory effort GI Other: Umbilical incision is clean, dry, and intact without redness or discharge. No hernias noted with Valsalva maneuvers. No tenderness is elicited with deep palpation. Neuro General: patient oriented x3 Extrem Other: No edema Assessment & Plan Assessment & Plan (1) Umbilical hernia: Code(s): K42.9 - Umbilical hernia without obstruction or gangrene Plan Patient returns 1 month following repair of an umbilical hernia. He tolerated the procedure well and his wounds are well healed. He may resume normal activity without restriction and should follow up as needed. Coding Level of Care Code Global (53899) Diagnoses Umbilical hernia K42.9
[2023-06-01 09:38] VITALS: BP 110/70; BMI 27.3
== END 2023-06-01 09:54 | disposition home or self-care (01) ==
PROVIDERS: PCP Family Medicine; Visit Provider Surgery
DX: K42.9 Umbilical hernia without obstruction or gangrene (principal)
CPT/HCPCS: 99213

== ENCOUNTER → 2023-06-01 09:17 | Outpatient (BNVA) | payer MEDICARE, OTHER, SELFPAY | PROVIDERS: PCP Family Medicine; Visit Provider Surgery | DX: K42.9 Umbilical hernia without obstruction or gangrene (principal) | CPT/HCPCS: 99212 ==

== ENCOUNTER 2023-06-26 08:33 | Outpatient (AMB) | payer MEDICARE, OTHER, SELFPAY ==
--- NOTE | 2023-06-26 08:34 | A.OFFPC_ITS ---
Vital Signs 06/26/23 08:35 Height 5 ft 9 in Weight 185 lb 8 oz BMI 27.4 BP 122/64 Blood Pressure Location Lt brachial Position Sitting Pulse 68 Pulse Source Pulse Oximeter Pulse Oximetry (%) 97 Oxygen Delivery Method Room Air Intake Visit Reasons: f/u elevated fasting glucose Intake Note: Patient is here to follow up on elevated fasting blood glucose. Allergies bee venom protein (honey bee) Allergy (Intermediate, Verified 06/26/23 08:37) swelling Tobacco use date assessed: 06/26/23 Fall risk assessment: No Falls in past year Last assessed Fall Risk: 06/26/23 Dental Screening Did you have a dental visit in the last 12 months?: Yes Did you have a dental problem in the last 6 months where you did not have access to dental care?: No Was dental information given to patient?: Patient has dentist HPI f/u elevated fasting glucose HPI Details 68 y/o male presents to f/u elevated fasting glucose. A1c today 06/26/23 is 5.6% which is about the same from prior but he states he has had some dietary indiscretions due to family events. Recent umbilical hernia repair. Plantar fasciitis which has resolved. Also venous stasis dermatitis which has also resolved. HPI Comments History of Present Illness Details Documentation assistance for Mo Alston MD, was provided by Naldo Abdul, Brake Drum Lathe Operator on 06/26/2023 9:01 AM ROBINSON. Moshe, Dr. Alston, have read, observed, and verified documentation. COUNTS INCLUDE 234 BEDS AT THE [facility] Medical History Elevated fasting blood sugar GERD (gastroesophageal reflux disease) HTN (hypertension) Obstructive sleep apnea Plantar fasciitis, bilateral Umbilical hernia Surgical History H/O colonoscopy H/O umbilical hernia repair (04/16/23) History of appendectomy (1974) History of sinus surgery History of surgery History of tonsillectomy History of uvulopalatopharyngoplasty Family History Father Leukemia CVD (cardiovascular disease) Mother Leukemia Sister No problems noted. Son No problems noted. Son No problems noted. Daughter No problems noted. Brother Stroke Brother No problems noted. Brother No problems noted. Brother No problems noted. Brother No problems noted. Social History Housing: House Are you a primary pediatric acute care unit nurse to a significant other at home: No Do you presently have visiting nurse or other home services: No Alcohol intake: never Patient Tobacco Use Status: Never used Tobacco e-Cigarette/Vaping Use: Never Used Second Hand Smoke Exposure: No service: No Current occupational status: retired Current occupational exposures/hazards: No Cognitive needs: No Hearing needs: No Vision needs: No Questionnaire Thrive Questionnaire Date Thrive assessed: 11/21/22 ERNESTO-7 AMB Questionnaire ERNESTO-7 Date ERNESTO - 7 assessed: 11/21/22 Source: Developed by Drs. Vidal Barone, Karny Santacruz, Drake Mheta and colleagues, with an educational jean-claude from [employer]. Review of Systems Const Denies chills, Denies fatigue, Denies fever(s), Denies headache(s) and Denies weakness ENT Denies dizziness and Denies headache(s) Card Denies chest pain, Denies lightheadedness, Denies dyspnea and Denies other (P alpitations) Resp Denies cough, Denies dyspnea, Denies wheezing and Denies other ( shortness of breath) Musc Denies numbness and Denies tingling Neuro Denies dizziness, Denies headache(s), Denies numbness, Denies tingling, Denies paresthesias and Denies weakness Psych Denies anxiety and Denies depression Endo Denies fatigue Aller/Immun Denies wheezing Physical exam (Primary Care) Vital Signs: Last Vital Signs Pulse 68 06/26/23 08:35 BP 122/64 06/26/23 08:35 Pulse Ox 97 06/26/23 08:35 Oxygen Delivery Method Room Air 06/26/23 08:35 BMI result Body Mass Index 27.4 Tobacco/Smoking Status: Tobacco use Status Tobacco use date assessed 06/26/23 06/26/23 08:43 Patient Tobacco Use Status Never used Tobacco 06/26/23 08:43 e-Cigarette/Vaping Use Never Used 06/26/23 08:43 Thrive Assessment: Date of Thrive Assessment Date Thrive assessed 01/17/23 08/22/23 08:43 Const General: no acute distress and well developed Nutritional Appearance: well nourished Orientation/consciousness: patient oriented x3 HENMT Head: Yes normocephalic and Yes atraumatic Eyes General: appearance normal, both eyes and all related structures Pupils: Equal, round and reactive pupils present EOM: EOMs intact bilaterally Resp Effort & Inspection: normal respiratory effort Auscultation: clear to auscultation bilaterally Cardio Rate: regular rate Rhythm: regular rhythm Heart sounds: S1 normal heart sound present, S2 normal heart sound present, no gallops, no murmurs and no rubs Neuro General: patient oriented x3 and gait normal Cranial nerves: Yes Equal, round and reactive pupils present Psych Affect: normal affect Results AMB Hemoglobin A1c AMB Hemoglobin A1c 5.6 % Last Edit by Kathie Gar CMA on 06/26/23 08:51 Results Reviewed Results Reviewed: Laboratory Last Values Hgb A1c (Clinic) 5.6 % (4.0-6.0) 06/26/23 08:48 Assessment and Plan Assessment & Plan (1) Elevated fasting blood sugar: Code(s): R73.01 - Impaired fasting glucose Plan: A1c 5.6% so still at top normal range and has had elevated fasting blood sugars. Likely insulin resistance. He has had some dietary indiscretions due to family events such as a wedding for his son Also had an umbilical hernia repair and has had less activity lately due to this and plantar fasciitis The above are essentially resolved so he will begin to work on diet and exercise more. Will follow-up in a few months (2) Plantar fasciitis: Code(s): M72.2 - Plantar fascial fibromatosis Plan: This has essentially resolved with the exercises demonstrated at his last visit Continue those exercises (3) Umbilical hernia: Code(s): K42.9 - Umbilical hernia without obstruction or gangrene Plan: Now status post hernia repair Doing well Follow-up with surgery as recommended (4) Dermatitis: Code(s): L30.9 - Dermatitis, unspecified Plan: This has resolved with moisturizer, elevation and compression stockings though he is no longer wearing those Orders: Orders AMB Hemoglobin A1c Today Z13.9 - Encounter for screening, unspecified Coding Level of Care Code Est Pt Level 4 (22127) Diagnoses Elevated fasting blood sugar R73.01 Plantar fasciitis M72.2 Umbilical hernia K42.9 Dermatitis L30.9
[2023-06-26 08:35] VITALS: BP 122/64; PULSE 68; O2SAT 97; BMI 27.4
== END 2023-06-26 09:15 | disposition home or self-care (01) ==
PROVIDERS: Visit Provider Family Medicine
DX: R73.01 Impaired fasting glucose (principal); M72.2 Plantar fascial fibromatosis; K42.9 Umbilical hernia without obstruction or gangrene; L30.9 Dermatitis, unspecified
CPT/HCPCS: 83036; 99214

== ENCOUNTER 2023-09-11 13:17 | Outpatient (AMB) | payer MEDICARE, OTHER, SELFPAY ==
--- NOTE | 2023-09-11 13:34 | A.OFFVIS_ITS ---
Intake Vital Signs 09/11/23 13:36 Height 5 ft 9 in Weight 188 lb BMI 27.8 BP 110/84 Blood Pressure Location Lt brachial Position Sitting Intake Visit Reasons: 1yr follow up - Confirmed Intake Note: Patient presents for 1 year follow up. Patient states no issues or concerns. Allergies bee venom protein (honey bee) Allergy (Intermediate, Verified 10/02/23 15:42) swelling HPI HPI Comments History of Present Illness Details 68 year-old male with obstructive sleep apnea comes for follow-up. Pt had a repeat study on November 2021. AHI was 10.8 per hour and the lowest oxygen was 84% it was a home sleep test. He is still using his sister's CPAP. He is using it everyday and feels refreshed during the daytime and sleeps good. I do not have compliance data today. His home care company is [employer]. [facility] Medical History Elevated fasting blood sugar GERD (gastroesophageal reflux disease) HTN (hypertension) Obstructive sleep apnea Plantar fasciitis, bilateral Umbilical hernia Surgical History H/O colonoscopy H/O umbilical hernia repair (04/16/23) History of appendectomy (1973) History of sinus surgery History of surgery History of tonsillectomy History of uvulopalatopharyngoplasty Family History Father Leukemia CVD (cardiovascular disease) Mother Leukemia Sister No problems noted. Son No problems noted. Son No problems noted. Daughter No problems noted. Brother Stroke Brother No problems noted. Brother No problems noted. Brother No problems noted. Brother No problems noted. Social History Housing: House Are you a primary home child care provider to a significant other at home: No Do you presently have visiting nurse or other home services: No Alcohol intake: never Patient Tobacco Use Status: Never used Tobacco e-Cigarette/Vaping Use: Never Used Second Hand Smoke Exposure: No service: No Current occupational status: retired Current occupational exposures/hazards: No Cognitive needs: No Hearing needs: No Vision needs: No Review of Systems Const All systems reviewed & are unremarkable except as noted in HPI and below Physical Exam Vital Signs: Last Vital Signs BP 110/84 09/11/23 13:36 BMI result Body Mass Index 27.8 ALert awake oriented X3 Mood- stable Speech- normal Cognition- normal Const Orientation/consciousness: patient oriented x3 HEENT Head: Yes normal to inspection and Yes normocephalic Mouth: other (mallampatti grade 4) Resp Effort & Inspection: normal respiratory effort Neuro General: patient oriented x3, gait normal and moves all extremities Motor exam (neuro): 5/5 motor strength present throughout Assessment & Plan Assessment & Plan (1) Obstructive sleep apnea: Comment: uses CPAP Code(s): G47.33 - Obstructive sleep apnea (adult) (pediatric) Plan Continue CPAP at 10cm of water as patient experiences good clinical effects. Compliance stressed, use CPAP nightly and more than 4 hrs. Advised patient to set up new account with his current CPAP for compliance report and supplies. Coding Level of Care Code Est Pt Level 3 (40331) Diagnoses Obstructive sleep apnea G47.33
[2023-09-11 13:36] VITALS: BP 110/84; BMI 27.8
== END 2023-09-11 14:02 | disposition home or self-care (01) ==
PROVIDERS: PCP Family Medicine; Visit Provider Nurse Practitioner Family
DX: G47.33 Obstructive sleep apnea (adult) (pediatric) (principal)
CPT/HCPCS: 99213

== ENCOUNTER → 2023-09-11 13:17 | Outpatient (BNVA) | payer MEDICARE, OTHER, SELFPAY | PROVIDERS: PCP Family Medicine; Visit Provider Nurse Practitioner Family | DX: G47.33 Obstructive sleep apnea (adult) (pediatric) (principal); Z99.89 Dependence on other enabling machines and devices | CPT/HCPCS: 99212 ==

== ENCOUNTER 2023-10-02 15:33 | Outpatient (AMB) | payer MEDICARE, OTHER, SELFPAY ==
--- NOTE | 2023-10-02 15:39 | A.OFFPC_ITS ---
Vital Signs 10/02/23 15:40 Height 5 ft 9 in Weight 192 lb BMI 28.4 BP 112/74 Blood Pressure Location Lt brachial Position Sitting Pulse 63 Pulse Source Pulse Oximeter Pulse Oximetry (%) 98 Oxygen Delivery Method Room Air Intake Visit Reasons: f/u elevated fasting blood sugars Intake Note: Patient is here to follow up on elevated fasting blood sugars Allergies bee venom protein (honey bee) Allergy (Intermediate, Verified 10/02/23 15:42) swelling Tobacco use date assessed: 10/02/23 Fall risk assessment: No Falls in past year Last assessed Fall Risk: 10/02/23 Dental Screening Dental Screen Date: 10/02/23 Did you have a dental visit in the last 12 months?: Yes Did you have a dental problem in the last 6 months where you did not have access to dental care?: No Was dental information given to patient?: Patient has dentist HPI f/u elevated fasting blood sugars HPI Details 68 y/o male presents to f/u elevated fas ting blood sugars. Last A1c 06/26/23 5.6%. He notes his diet could be better though he notes other than last week he has been doing well in regard to his diet. A1c today 10/02/23 is 5.4%. Pt reports he gets a sinus infection every year around this time. He states he woke up this morning congested and is worried that this will progress to a sinus infection. [facility] Medical History Elevated fasting blood sugar GERD (gastroesophageal reflux disease) HTN (hypertension) Obstructive sleep apnea Plantar fasciitis, bilateral Umbilical hernia Surgical History H/O colonoscopy H/O umbilical hernia repair (04/16/23) History of appendectomy (1973) History of sinus surgery History of surgery History of tonsillectomy History of uvulopalatopharyngoplasty Family History Father Leukemia CVD (cardiovascular disease) Mother Leukemia Sister No problems noted. Son No problems noted. Son No problems noted. Daughter No problems noted. Brother Stroke Brother No problems noted. Brother No problems noted. Brother No problems noted. Brother No problems noted. Social History Housing: House Are you a primary transitional care nurse to a significant other at home: No Do you presently have visiting nurse or other home services: No Alcohol intake: never Patient Tobacco Use Status: Never used Tobacco e-Cigarette/Vaping Use: Never Used Second Hand Smoke Exposure: No service: No Current occupational status: retired Current occupational exposures/hazards: No Cognitive needs: No Hearing needs: No Vision needs: No Questionnaire Thrive Questionnaire Date Thrive assessed: 11/21/22 ERNESTO-7 AMB Questionnaire ERNESTO-7 Date ERNESTO - 7 assessed: 11/21/22 Source: Developed by Drs. Vidal Barone, Karyn Santacruz, Drake Mehta and colleagues, with an educational jean-claude from [employer]. Review of Systems Const Denies chills, Denies fatigue, Denies fever(s), Denies headache(s) and Denies weakness ENT Denies dizziness, Denies headache(s) and Reports nasal congestion Card Denies dyspnea Resp Denies cough, Denies dyspnea, Denies wheezing and Denies other (shortness of breath) Musc Denies numbness and Denies tingling Neuro Denies dizziness, Denies headache(s), Denies numbness, Denies tingling and Denies weakness Psych Denies anxiety and Denies depression Endo Denies fatigue Aller/Immun Denies wheezing Physical exam (Primary Care) Vital Signs: Last Vital Signs Pulse 63 10/02/23 15:40 BP 112/74 10/02/23 15:40 Pulse Ox 98 10/02/23 15:40 Oxygen Delivery Method Room Air 10/02/23 15:40 BMI result Body Mass Index 28.4 Tobacco/Smoking Status: Tobacco use Status Tobacco use date assessed 10/02/23 10/02/23 15:50 Patient Tobacco Use Status Never used Tobacco 10/02/23 15:50 e-Cigarette/Vaping Use Never Used 10/02/23 15:50 Thrive Assessment: Date of Thrive Assessment Date Thrive assessed 11/21/22 10/02/23 15:50 Const General: well developed; No acute distress Nutritional Appearance: well nourished Orientation/consciousness: patient oriented x3 HENMT Head: Yes normocephalic and Yes atraumatic Eyes General: appearance normal, both eyes and all related structures Pupils: Equal, round and reactive pupils present EOM: EOMs intact bilaterally Resp Effort & Inspection: normal respiratory effort Neuro General: patient oriented x3 and gait normal Cranial nerves: Yes Equal, round and reactive pupils present Psych Affect: normal affect Assessment and Plan Assessment & Plan (1) Elevated fasting blood sugar: Code(s): R73.01 - Impaired fasting glucose Plan: Likely?some?insulin?resistance. Recommended?healthy?diet?low?in?sugars?and?starches Recommended?weight?control?and?exercise (2) Sinusitis: Code(s): J32.9 - Chronic sinusitis, unspecified Plan: Will?give?patient?a?script?for?amoxicillin?and?also?Flonase Can?use?warm?compresses?on?maxillary?sinuses Orders: Orders AMB Hemoglobin A1c Today Z13.9 - Encounter for screening, unspecified Medications: New fluticasone propionate 50 mcg/actuation (Flonase Allergy Relief) administer into each nostril 1 spray intranasal Q12H 16 grams 2RF 30 days amoxicillin 500 mg PO Q12H 20 tabs 0RF 10 days Coding Level of Care Code Est Pt Level 3 (61990) Diagnoses Elevated fasting blood sugar R73.01 Sinusitis J32.9
[2023-10-02 15:40] VITALS: BP 112/74; PULSE 63; O2SAT 98; BMI 28.4
== END 2023-10-02 16:24 | disposition home or self-care (01) ==
PROVIDERS: PCP Family Medicine; Visit Provider Family Medicine
DX: R73.01 Impaired fasting glucose (principal); J32.9 Chronic sinusitis, unspecified
CPT/HCPCS: 83036; 99213

== ENCOUNTER 2023-12-26 10:53 | Outpatient (REF) | payer MEDICARE, OTHER, SELFPAY ==
[2023-12-26 13:10] LABS: Appearance Urine Clear; Color Urine Yellow; Glucose Urine UA Negative (Negative); Leukocyte Esterase Urine Negative (Negative); Nitrite Urine Negative (Negative); Specific Gravity - Urine 1.025 (1.005-1.025); Urine Blood Negative (Negative); Urine Ketones Negative (Negative); Urine Protein Negative (Neg-Trace)
[2023-12-26 13:30] LABS: Alanine Aminotransferase 16 U/L (0-40); Alkaline Phosphatase 86 U/L (39-117); Anion Gap 12 (12-20); Aspartate Amino Transferase 19 U/L (5-37); Bilirubin Total 2.2 mg/dL (0.0-1.0); Blood Urea Nitrogen 17 mg/dL (9-16); Calcium 9.3 mg/dL (8.4-10.2); Carbon Dioxide 29 mmol/L (22-29); Chloride 104 mmol/L (96-108); Cholesterol 138 mg/dL (<200); Estimated Glomerular Filt Rate > 60; Glucose Fasting 96 mg/dL (60-99); HDL Cholesterol 40 mg/dL (>40); LDL Cholesterol Calculated 82 mg/dL (<100); Potassium 3.5 mmol/L (3.3-5.1); Sodium 141 mmol/L (135-145); Total Protein 6.7 g/dL (6.5-8.0); Triglycerides 80 mg/dL (<150)
[2023-12-26 13:44] LABS: TSH reflex Free T4 1.34 uIU/mL (0.32-4.0)
[2023-12-26 13:45] LABS: Prostate Specific Antigen Scr 0.56 ng/mL (<0.05-4.0)
[2023-12-26 13:58] LABS: Creatinine Urine 142.06 mg/dL; Microalbumin Urine < 5.0 mg/L
== END 2023-12-26 10:54 | disposition home or self-care (01) ==
LOC: HO.10HDL 10:53
PROVIDERS: Visit Provider Family Medicine
DX: Z00.00 Encounter for general adult medical examination without abnormal findings (principal); I10 Essential (primary) hypertension; R73.01 Impaired fasting glucose; Z12.5 Encounter for screening for malignant neoplasm of prostate
CPT/HCPCS: 36415; 80053; 80061; 81003; 82570; 84153; 84443

== ENCOUNTER 2023-12-27 13:49 | Outpatient (AMB) | payer MEDICARE, OTHER, SELFPAY ==
[2023-12-27 14:02] VITALS: BP 116/70; PULSE 62; O2SAT 96; BMI 29.1
--- NOTE | 2023-12-27 14:02 | MHC.PC.OV ---
Vital Signs 12/27/23 14:02 Height 5 ft 9 in Weight 197 lb BMI 29.1 BP 116/70 Blood Pressure Location Lt brachial Position Sitting Pulse 62 Pulse Source Pulse Oximeter Pulse Oximetry (%) 96 Oxygen Delivery Method Room Air Intake Visit Reasons: Extended exam with f/u labs and [facility] maint. Intake Note: Patient is here for extended exam, and follow up on labs, has had congestion, and cough and loss of voice last . Allergies bee venom protein (honey bee) Allergy (Intermediate, Verified 12/27/23 14:05) swelling Tobacco use date assessed: 12/27/23 Fall risk assessment: No Falls in past year Last assessed Fall Risk: 12/27/23 Dental Screening Dental Screen Date: 12/27/23 Did you have a dental visit in the last 12 months?: Yes Did you have a dental problem in the last 6 months where you did not have access to dental care?: No Was dental information given to patient?: Patient has dentist HPI Extended exam with f/u labs and [facility]. HPI Details 68 y/o male presents for an extended exam with f/u labs and health maintenance. Labs were drawn 12/26/23. Reviewed labs with pt. Triglycerides 80. TC 138. LDL 82. HDL 40. PFSH Medical History Plantar fasciitis, bilateral Elevated fasting blood sugar GERD (gastroesophageal reflux disease) Umbilical hernia Obstructive sleep apnea HTN (hypertension) Surgical History H/O umbilical hernia repair (04/16/23) History of uvulopalatopharyngoplasty History of surgery H/O colonoscopy History of appendectomy (1973) History of sinus surgery History of tonsillectomy Family History Father Leukemia CVD (cardiovascular disease) Mother Leukemia Sister No problems noted. Son No problems noted. Son No problems noted. Daughter No problems noted. Brother Stroke Brother No problems noted. Brother No problems noted. Brother No problems noted. Brother No problems noted. Social History Housing: House Are you a primary child care associate teacher to a significant other at home: No Do you presently have visiting nurse or other home services: No Alcohol intake: never Patient Tobacco Use Status: Never used Tobacco e-Cigarette/Vaping Use: Never Used Second Hand Smoke Exposure: No service: No Current occupational status: retired Current occupational exposures/hazards: No Cognitive needs: No Hearing needs: No Vision needs: No Questionnaire PHQ-9 Over the last 2 weeks, how often have you been bothered by any of the following problems? 1. Little interest or pleasure in doing things: not at all 2. Feeling down, depressed, or hopeless: not at all 3. Trouble falling or staying asleep, or sleeping too much: not at all 4. Feeling tired or having little energy: not at all 5. Poor appetite or overeating: not at all 6. Feeling bad about yourself - or that you are a failure or have let yourself or your family down: not at all 7. Trouble concentrating on things, such as reading the newspaper or watching television: not at all 8. Moving or speaking so slowly that other people could have noticed. Or the opposite - being so fidgety or restless that you have been moving around a lot more than usual: not at all 9. Thoughts that you would be better off or of hurting yourself in some way: not at all Total score: 0 Depression Screening Interpretation: Negative Depression Screening Done: Yes Source: Developed by Drs. Vidal Barone, Karyn Santacruz, Drake Mehta and colleagues, with an educational jean-claude from [employer]. Thrive Questionnaire Date Thrive assessed: 12/27/23 I am a: Patient What is your living situation today?: I have a steady place to live Within the past 12 months, did the food you bought not last and you didn't have the money to get more?: Never true Within the past 12 months, did you worry whether your food would run out before you got money to buy more?: Never true Do you have trouble paying for medicines?: No Do you have trouble getting transportation to medical appointments?: No Do you have trouble paying your heating and electricity bill?: No Do you have trouble taking care of your child, family member or friend?: No Do you have trouble with day-to-day activities such as bathing, preparing meals, shopping, managing finances, etc.?: No Are you currently unemployed and looking for a job?: No Are you interested in more education?: No THRIVE Score: 0 AUDIT C Alcohol Use Questionnaire (AUDIT-C) 1. How often do you have a drink containing alcohol?: Never 3. How often do you have six or more drinks on one occasion?: Never Total Score: 0 ERNESTO-7 AMB Questionnaire ERNESTO-7 Date ERNESTO - 7 assessed: 12/27/23 Feeling nervous, anxious, or on edge: 0 = Not at all Not being able to stop or control worryin = Not at all Worrying too much about different things: 0 = Not at all Trouble relaxin = Not at all Being so restless that it is hard to sit still: 0 = Not at all Becoming easily annoyed or irritable: 0 = Not at all Feeling afraid as if something awful might happen: 0 = Not at all Total ERNESTO-7 score (0-4 normal; 5-9 mild; 10-14 moderate; 15-21 severe): 0 Source: Developed by Drs. Vidal Barone, Karyn Santacruz, Drake Mehta and colleagues, with an educational jean-claude from [employer]. Review of Systems Const Denies chills, Denies fatigue, Denies fever(s), Denies headache(s) and Denies weakness Eyes Denies change in vision ENT Denies dizziness, Denies headache(s), Denies hearing loss, Denies nasal congestion, Denies sinus pain, Denies sinus pressure and Denies sore throat Card Denies chest pain, Denies lightheadedness, Denies dyspnea and Denies other (palpitations) Resp Denies cough, Denies dyspnea and Denies wheezing GI Denies abdominal pain, Denies melena, Denies hematochezia, Denies change in bowel habits, Denies dyspepsia and Denies nausea Denies hematuria and Denies dysuria Musc Denies abnormal gait, Denies myalgias, Denies arthralgias, Denies numbness and Denies tingling Skin/Breast Reports rash, Denies unusual bruising and Denies wounds Neuro Denies abnormal gait, Denies dizziness, Denies headache(s), Denies memory loss, Denies numbness, Denies Sensory deficit (Neuro), Denies tingling and Denies weakness Psych Denies anxiety, Denies depression and Denies memory loss Endo Denies cold intolerance, Denies fatigue, Denies heat intolerance, Denies polydipsia and Denies polyuria Arnol/Lymph Denies easy bleeding and Denies easy bruising Aller/Immun Denies wheezing Physical exam (Primary Care) Vital Signs: Last Vital Signs Pulse 62 12/27/23 14:02 BP 116/70 12/27/23 14:02 Pulse Ox 96 12/27/23 14:02 Oxygen Delivery Method Room Air 12/27/23 14:02 BMI result Body Mass Index 29.1 Tobacco/Smoking Status: Tobacco use Status Tobacco use date assessed 12/27/23 12/27/23 14:09 Patient Tobacco Use Status Never used Tobacco 12/27/23 14:09 e-Cigarette/Vaping Use Never Used 12/27/23 14:09 PHQ-9: PHQ-9 Score PHQ-9: Total score 0 12/27/23 14:14 Depression Screening Interpretation: Negative Thrive Assessment: Date of Thrive Assessment Date Thrive assessed 12/27/23 12/27/23 14:14 Const General: no acute distress, well developed, alert and awake Nutritional Appearance: well nourished Orientation/consciousness: patient oriented x3 HENMT Head: Yes normocephalic and Yes atraumatic Ears: hearing grossly normal bilaterally and TM's normal bilaterally General nose exam: Normal external nose present and Normal nares present Mouth: Normal oral and palatal mucosa present and moist mucous membranes Teeth and gingiva: dentition normal Throat: Yes posterior oropharynx normal Eyes General: appearance normal, both eyes and all related structures Pupils: Equal, round and reactive pupils present and Pupil accommodation reflex normal EOM: EOMs intact bilaterally Neck Neck: Yes normal visual inspection, Yes no lymphadenopathy and Yes trachea midline Thyroid: Thyroid normal Carotids: no bruits Lymphatic: no lymphadenopathy noted Chest Chest palpation & inspection: normal inspection of the chest Resp Effort & Inspection: normal respiratory effort Auscultation: clear to auscultation bilaterally Cardio Rate: regular rate Rhythm: regular rhythm Heart sounds: S1 normal heart sound present, S2 normal heart sound present, no gallops, no murmurs and no rubs Bruits: no abdominal aortic bruits and no carotid bruits GI Palpation (GI): No Abdominal aortic bruit present, Soft to palpation, nontender, No hepatosplenomegaly present and No Rebound tenderness present Auscultation: normal bowel sounds General: Yes no CVA tenderness Back/Spine/Pelvis Back: no CVA tenderness Cervical Spine: cervical ROM normal and No Cervical spine tenderness Thoracic/Lumbar Spine: thoraco-lumbar ROM normal, No pain with thoraco-lumbar ROM, No thoracic spinal tenderness and No lumbar spinal tenderness Skin Lesions: no lesions Rashes: no rashes Trauma: no lacerations or abrasions Wounds: no wounds Nails: normal Neuro General: patient oriented x3 Cranial nerves: Yes Equal, round and reactive pupils present Cognition (Neuro): normal cognition Gait exam (Neuro): Normal gait present Motor exam (neuro): 5/5 motor strength present throughout Sensory Exam: No Sensory deficit (Neuro) Deep tendon reflexes (DTR's): Right patellar reflex intensity grade: 2+ and Left patellar reflex intensity grade: 2+ Extrem General: Yes normal to inspection and No edema Psych Appearance: grossly normal Affect: normal affect Attitude: cooperative Thought process: Normal thought process present Assessment and Plan Assessment & Plan (1) Viral illness: Code(s): B34.9 - Viral infection, unspecified Plan: Viral?illness There?is?no?antibiotic?medication?for?viruses.??They?must?run?their?course.??Most?average?5-7?days?but?7-10?days?is?not?uncommon?and?up?to?14?days?is?still?possible.??A?cough?is?often?the?last?symptom?to?resolve?and?this?can?last?for?weeks?in?some?ca ses. Rest Hydrate?well?-??Drink?plenty?of?fluids.??Especially?water. Tylenol?or?ibuprofen?for?muscle?aches,?headache,?fever/discomfort Can?use?ggqg-puq-dumotbp?medications?for?cough?such?as?Delsym?or?DayQuil.??Prescription?cough?medicines?have?been?shown?to?be?no?better. Checking?swab?for?COVID/flu/RSV (2) Rash: Code(s): R21 - Rash and other nonspecific skin eruption Plan: Likely?secondary?to?some?venous?stasis?and?being?on?his?feet?for?long?periods?of?time.??Possible?hemosiderin?staining Elevate?legs?and?consider?diabetic?OTC?compression?stockings Elevate?legs If?not?improving?will?refer (3) Screening for prostate cancer: Code(s): Z12.5 - Encounter for screening for malignant neoplasm of prostate Plan: PSA?was?within?normal?limits (4) Screening for colon cancer: Code(s): Z12.11 - Encounter for screening for malignant neoplasm of colon Plan: No?history?of?colon?cancer?or?abnormal?colonoscopies.??No?family?history?of?colon?cancer?or?polyps He?would?like?to?use?Cologuard?test.??Ordered (5) GERD (gastroesophageal reflux disease): Code(s): K21.9 - Gastro-esophageal reflux disease without esophagitis Plan: Continue?omeprazole (6) Adult general medical examination: Code(s): Z00.00 - Encounter for general adult medical examination without abnormal findings Plan: Continue?healthy?diet?with?active?lifestyle?and?plenty?of?exercise Orders: Orders SARS-CoV2/FLU/RSV Today B34.9 - Viral infection, unspecified, J32.9 - Chronic sinusitis, unspecified, Z20.822 - Contact with and (suspected) exposure to COVID-19 Referrals Cologuard Test Z12.11 - Encounter for screening for malignant neoplasm of colon, Z12.12 - Encounter for screening for malignant neoplasm of rectum Coding Level of Care Code Est Pt Level 4 (92412) Diagnoses Viral illness B34.9 Rash R21 Screening for prostate cancer Z12.5 Screening for colon cancer Z12.11 GERD (gastroesophageal reflux disease) K21.9 Adult general medical examination Z00.00
== END 2023-12-27 14:49 | disposition home or self-care (01) ==
PROVIDERS: PCP Family Medicine; Visit Provider Family Medicine
DX: B34.9 Viral infection, unspecified (principal); R21 Rash and other nonspecific skin eruption; Z12.5 Encounter for screening for malignant neoplasm of prostate; Z12.11 Encounter for screening for malignant neoplasm of colon; K21.9 Gastro-esophageal reflux disease without esophagitis; Z00.00 Encounter for general adult medical examination without abnormal findings
CPT/HCPCS: 99214

== ENCOUNTER 2023-12-27 14:50 | Outpatient (REF) | payer MEDICARE, OTHER, SELFPAY ==
[2023-12-28 14:52] LABS: Influenza A PCR NEGATIVE (Negative); Influenza B PCR NEGATIVE (Negative); Resp Syncy Virus RNA Qual PCR NEGATIVE (Negative); SARS COV2 PCR INHOUSE NEGATIVE (Negative)
== END 2023-12-27 14:51 | disposition home or self-care (01) ==
LOC: HO.LAB 14:50
PROVIDERS: Visit Provider Family Medicine
DX: J32.9 Chronic sinusitis, unspecified (principal); B34.9 Viral infection, unspecified; Z20.822 Contact with and (suspected) exposure to COVID-19
CPT/HCPCS: 0241U

== ENCOUNTER 2024-11-17 09:17 | Outpatient (REF) | payer MEDICARE, OTHER, SELFPAY ==
--- NOTE | ~2024-11-17 | XR_ITS ---
EXAMINATION: XR CHEST 2 VIEWS HISTORY: R68.89 - Other general symptoms and signs, wheezing and cough COMPARISON: Comparison is made with the prior examination dated 11/09/2016. FINDINGS: PA and lateral views of the chest are submitted. There is patchy airspace opacity posteriorly on the lateral view consistent with lower lobe pneumonia. This is not well identified on the PA view. There is no pleural effusion, pneumothorax, or pulmonary vascular congestion. The heart is normal in size. There is a mild compression deformity of a mid to lower thoracic vertebral body. XR/XR chest 2V IMPRESSION: Lower lobe pneumonia best seen on the lateral view. Follow-up is recommended to document resolution. Electronically signed by: Vidal Reid MD 11/17/2024 11:05 AM [facility]
== END 2024-11-17 09:18 | disposition home or self-care (01) ==
LOC: HO.HMGCX 09:17
PROVIDERS: PCP Family Medicine; Visit Provider Nurse Practitioner Family
DX: Z13.89 Encounter for screening for other disorder (principal)
CPT/HCPCS: 71046; 99212

== ENCOUNTER 2024-11-17 09:17 | Outpatient (AMB) | payer MEDICARE, OTHER, SELFPAY ==
--- NOTE | 2024-11-17 09:23 | AM.OFFWIN_ITS ---
Intake Vital Signs 11/17/24 09:28 Height 5 ft 9 in Weight 196 lb 6 oz BMI 29.0 BP 132/72 Blood Pressure Location Lt brachial Position Sitting Respiration 13 Pulse 85 Pulse Source Pulse Oximeter Pulse Oximetry (%) 95 Oxygen Delivery Method Simple Mask Intake Visit Reasons: cough/ cold/ear pain Intake Note: Patient complaining of coughing with sob and hard to catch breath, body aches, and ear px x 3 days Patient Tobacco Use Status: Never used Tobacco Allergies bee venom protein (honey bee) Allergy (Intermediate, Verified 11/17/24 09:34) swelling Medication List - Last Reconciled 11/17/24 by Ekta Feng, [facility]- comp.stocking,knee,long,medium 30-40 mmHg Daily As directed, 90 days fluticasone propionate 50 mcg/actuation (Flonase Allergy Relief) 1 spray in tranasal Q12H 30 days ibuprofen 800 mg PO TID PRN 30 days omeprazole 20 mg PO DAILY 90 days sildenafil 100 mg PO DAILY PRN 28 days Do you need a note to return to daycare/school/sports/work: No HPI HPI Comments History of Present Illness Details The patient is a 69-year-old male presenting with shortness of breath, cough, body aches, and ear pain over the past three days. Symptoms began with a severe cough that occurs frequently and leads to difficulty catching his breath. He reports the sensation of not being able to breathe in deeply without inducing a coughing fit, contributing to a feeling of shortness of breath. There is also a slight irritation in the throat, likely secondary to the persistent cough. Additionally, the patient experiences ear pain, which was noted to be consistent with redness upon examination. He denies having received a flu shot this season. His last COVID-19 vaccine was during the initial rounds, and there have been no recent travel or surgical interventions. The patient attempted home treatment with a cough suppressant without significant improvement. There are no associated chest pain or productive cough noted. EXAM: Awake alert NAD, mildly ill appearing Sclera and conjunctiva clear bilat Nares clear drainage bilat, turbinates within normal limits, no sinus tenderness with palpation bilat TM intact clear on R, mild erythema on L MMM, pharynx WNL RRR LS dim throughout, wheezing in the left upper lobe, paroxysmal cough with deep breathing Plan - Conduct nasal swab testing for COVID-1 9, Influenza, and Respiratory Syncytial Virus RSV) with results expected by the end of the day. - Order a chest X-ray to evaluate wheezi ng in the left upper lung. - Consider Tamiflu oseltamivirif influen za test returns positive, to mitigate symptom progression and provide antiviral therapy. - Management of RSV will focus on sympto matic support. - If the chest X-ray indicates pneumonia , appropriate antibiotic therapy will be initiated. - Provide instructions for obtaining the chest X-ray at the outpatient facility and communicate with the patient once results are available for further management planning. Patient was informed and verbally consented to the use of an ambient scribe for clinic note documentation during this visit. 1513: he does have influenza as well as a left lower lobe pneumonia. I have sent in Tamiflu as well as an antibiotic and inhaler and some prednisone to help treat his symptoms. I do recommend an office visit in 4 weeks with a follow up chest x-ray to confirm resolution of his pneumonia. If he were to develop worsening of symptoms advised for a sooner follow up otherwise please schedule him for a 4 week follow up visit with myself or his PCP. Total time spent caring for the patient today was 30 minutes. This includes time spent before the visit reviewing the chart, time spent during the visit, and time spent after the visit on documentation This note is constructed using voice recognition software. While every effort has been made to ensure accuracy in recreation supervisor, still errors may have been included Sometimes, these errors may affect the content or meaning of the given sentence . [facility] Medical History Plantar fasciitis, bilateral Elevated fasting blood sugar GERD (gastroesophageal reflux disease) Umbilical hernia Obstructive sleep apnea HTN (hypertension) Surgical History H/O umbilical hernia repair (04/16/23) History of uvulopalatopharyngoplasty History of surgery H/O colonoscopy History of appendectomy (1973) History of sinus surgery History of tonsillectomy Family History Father Leukemia CVD (cardiovascular disease) Mother Leukemia Sister No problems noted. Son No problems noted. Son No problems noted. Daughter No problems noted. Brother Stroke Brother No problems noted. Brother No problems noted. Brother No problems noted. Brother No problems noted. Social History Housing: House Are you a primary care tech to a significant other at home: No Do you presently have visiting nurse or other home services: No Alcohol intake: never Patient Tobacco Use Status: Never used Tobacco e-Cigarette/Vaping Use: Never Used Second Hand Smoke Exposure: No service: No Current occupational status: retired Current occupational exposures/hazards: No Cognitive needs: No Hearing needs: No Vision needs: No Physical Exam Vital Signs: Last Vital Signs Pulse 85 11/17/24 09:28 Resp 13 11/17/24 09:28 BP 132/72 11/17/24 09:28 Pulse Ox 95 11/17/24 09:28 Oxygen Delivery Method Simple Mask 11/17/24 09:28 BMI result Body Mass Index 29.0 Results Reviewed Results Reviewed: [facility] [place] [address] XRay Report Signed Patient: Clayton Rios MR#: [id number] : 1955 Acct:[id number] Age/Sex: 69 / M ADM Date: 11/17/24 Loc: .[facility] Attending Dr: Ekta MALDONADO Ordering Physician: Ekta Feng Date of Service: 11/17/24 Procedure(s): XR chest 2V Accession Number(s): [id number] cc: Mo Alston MD; Ekta Feng~ EXAMINATION: XR CHEST 2 VIEWS HISTORY: R68.89 - Other general symptoms and signs, wheezing and cough COMPARISON: Comparison is made with the prior examination dated 11/09/2016. FINDINGS: PA and lateral views of the chest are submitted. There is patchy airspace opacity posteriorly on the lateral view consistent with lower lobe pneumonia. This is not well identified on the PA view. There is no pleural effusion, pneumothorax, or pulmonary vascular congestion. The heart is normal in size. There is a mild compression deformity of a mid to lower thoracic vertebral body. XR/XR chest 2V IMPRESSION: Lower lobe pneumonia best seen on the lateral view. Follow-up is recommended to document resolution. Electronically signed by: Vidal Reid MD 11/17/2024 11:05 AM [facility] Dictated By: Vidal Reid MD Signed By: <Electronically signed by Vidal Reid MD in OV> 11/17/24 1105 DD/ 1011 TD/TT: 11/17/24 1015 Java Solutions Architect: RUN: 11/17/24 150 PAGE 1 [facility] [address] [place] [id number] Heavy Equipment Service Manager: Mo Jeter M.D. Specimen Inquiry Name: Clayton Rios Age/Sex: 69/M : 1955 Unit#: [id number] Attend Dr: Ekta Feng Re11/17/24 Status: REG REF Location: [facility] Disch: SPEC : [id number] GERTRUDIS: 11/17/24 STATUS: COMP REQ : [id number] RECD: 11/17/24 [facility] DR: Ekta Feng COMP: 11/17/24-1230 ENTERED: 11/17/24-1104 [facility] DR: ORDERED: SARS/FLU/RSV Test Result Flag Reference Influenza A PCR POSITIVE A Negative Influenza B PCR NEGATIVE Negative RSV RNA QualPCR NEGATIVE Negative SARSCOV2 RT-PCR NEGATIVE Negative All test results must be correlated with clinical findings. Negative results do not preclude SARS-CoV2, influenza A virus, influenza B virus and/or RSV infection and should not be used as the sole basis for treatment or other patient management decisions. Negative results must be combined with clinical observations, patient history, and epidemiological information. This test has not been evaluated for monitoring treatment of infection. This test has been authorized by the FDA under an Emergency Use Authorization (EUA) for use by authorized laboratories. Testing performed on the [email or web address] GeneXpert utilizing real-time RT-PCR. All SARS CoV2 and positive influenza A/B results are reported to [facility]. END OF REPORT Assessment & Plan Assessment & Plan (1) Influenza: Code(s): J11.1 - Influenza due to unidentified influenza virus with other respiratory manifestations (2) LLL pneumonia: Code(s): J18.9 - Pneumonia, unspecified organism Qualifiers: Pneumonia type: due to unspecified organism Qualified Code(s): J18.9 - Pneumonia, unspecified organism (3) Flu-like symptoms: Code(s): R68.89 - Other general symptoms and signs Plan . Orders: Orders XR chest 2V Today R68.89 - Other general symptoms and signs XR chest 2V 4 Weeks J18.9 - Pneumonia, unspecified organism SARS-CoV2/FLU/RSV Today R09.89 - Other specified symptoms and signs involving the circulatory and respiratory systems, R68.89 - Other general symptoms and signs Medications: New albuterol sulfate 90 mcg/actuation 2 puffs inhalation Q4-6H 30 days PRN 8.5 grams 0RF shortness of breath or wheezing oseltamivir (Tamiflu) 75 mg PO Q12H 5 days 10 caps 0RF azithromycin For 250 mg dose pack: take 500 mg today (day 1), then 250 mg for 4 days (days 2-5) PO 5 days 6 tabs 0RF prednisone 20 mg PO DAILY 5 tabs 0RF Coding Level of Care Code Est Pt Level 4 (81804) Diagnoses Influenza J11.1 Pneumonia of left lower lobe due to infectious organism J18.9 Pneumonia type: due to unspecified organism Flu-like symptoms R68.89
[2024-11-17 09:28] VITALS: BP 132/72; PULSE 85; RESP 13; O2SAT 95; BMI 29.0
== END 2024-11-17 09:45 | disposition home or self-care (01) ==
LOC: HO.HMCWIW 09:17
PROVIDERS: PCP Family Medicine; Visit Provider Nurse Practitioner Family
DX: J11.1 Influenza due to unidentified influenza virus with other respiratory manifestations (principal); J18.9 Pneumonia, unspecified organism; R68.89 Other general symptoms and signs

== ENCOUNTER → 2024-11-17 10:11 | Outpatient (BNV) | payer MEDICARE, OTHER, SELFPAY | PROVIDERS: PCP Family Medicine; Visit Provider Radiology Diagnostic Radiology | DX: J18.9 Pneumonia, unspecified organism (principal) | CPT/HCPCS: 71046 ==

== ENCOUNTER 2024-11-17 11:01 | Outpatient (REF) | payer MEDICARE, OTHER, SELFPAY ==
[2024-11-17 12:30] LABS: Influenza A PCR POSITIVE (Negative); Influenza B PCR NEGATIVE (Negative); Resp Syncy Virus RNA Qual PCR NEGATIVE (Negative); SARS COV2 PCR INHOUSE NEGATIVE (Negative)
== END 2024-11-17 11:02 | disposition home or self-care (01) ==
LOC: HO.LNP 11:01
PROVIDERS: Visit Provider Nurse Practitioner Family
DX: J11.00 Influenza due to unidentified influenza virus with unspecified type of pneumonia (principal); R09.89 Other specified symptoms and signs involving the circulatory and respiratory systems; R68.89 Other general symptoms and signs
CPT/HCPCS: 0241U; 71046; 99212

== ENCOUNTER 2024-12-15 14:44 | Outpatient (AMB) | payer MEDICARE, OTHER, SELFPAY ==
--- NOTE | 2024-12-15 14:56 | MHC.PC.OV ---
Vital Signs 12/15/24 14:59 Height 5 ft 9 in Weight 188 lb 6 oz BMI 27.8 BP 110/70 Blood Pressure Location Lt brachial Position Sitting Respiration 14 Pulse 67 Pulse Source Pulse Oximeter Temp 97.3 F Temp Source Oral Pulse Oximetry (%) 97 Oxygen Delivery Method Room Air Intake Visit Reasons: FU PNEUMONIA Intake Note: follow up for pneumonia Allergies bee venom protein (honey bee) Allergy (Intermediate, Verified 12/15/24 14:57) swelling Tobacco use date assessed: 12/27/23 Dental Screening Dental Screen Date: 12/27/23 HPI FU PNEUMONIA HPI Details 69 y/o male presents to f/u pneumonia. Chest x-ray 11/17/24 showed lower lobe pneumonia best seen on lateral view. Follow-up was recommended to document resolution. Pt notes symptoms have been improving. He states he is breathing okay. [facility] Medical History Plantar fasciitis, bilateral Elevated fasting blood sugar GERD (gastroesophageal reflux disease) Umbilical hernia Obstructive sleep apnea HTN (hypertension) Surgical History H/O umbilical hernia repair (04/16/23) History of uvulopalatopharyngoplasty History of surgery H/O colonoscopy History of appendectomy (1973) History of sinus surgery History of tonsillectomy Family History Father Leukemia CVD (cardiovascular disease) Mother Leukemia Sister No problems noted. Son No problems noted. Son No problems noted. Daughter No problems noted. Brother Stroke Brother No problems noted. Brother No problems noted. Brother No problems noted. Brother No problems noted. Social History Housing: House Are you a primary career technical education instructor to a significant other at home: No Do you presently have visiting nurse or other home services: No Alcohol intake: never Patient Tobacco Use Status: Never used Tobacco e-Cigarette/Vaping Use: Never Used Second Hand Smoke Exposure: No service: No Current occupational status: retired Current occupational exposures/hazards: No Cognitive needs: No Hearing needs: No Vision needs: No Questionnaire PHQ-9 Over the last 2 weeks, how often have you been bothered by any of the following problems? 1. Little interest or pleasure in doing things: not at all 2. Feeling down, depressed, or hopeless: not at all 3. Trouble falling or staying asleep, or sleeping too much: not at all 4. Feeling tired or having little energy: not at all 5. Poor appetite or overeating: not at all 6. Feeling bad about yourself - or that you are a failure or have let yourself or your family down: not at all 7. Trouble concentrating on things, such as reading the newspaper or watching television: not at all 8. Moving or speaking so slowly that other people could have noticed. Or the opposite - being so fidgety or restless that you have been moving around a lot more than usual: not at all 9. Thoughts that you would be better off or of hurting yourself in some way: not at all Total score: 0 Source: Developed by Drs. Vidal Barone, Karyn Santacruz, Drake Mehta and colleagues, with an educational jean-claude from [employer]. Thrive Questionnaire Date Thrive assessed: 12/27/23 I am a: Patient What is your living situation today?: I have a steady place to live Within the past 12 months, did the food you bought not last and you didn't have the money to get more?: Never true Within the past 12 months, did you worry whether your food would run out before you got money to buy more?: Never true Do you have trouble paying for medicines?: No Do you have trouble getting transportation to medical appointments?: No Do you have trouble paying your heating and electricity bill?: No Do you have trouble taking care of your child, family member or friend?: No Do you have trouble with day-to-day activities such as bathing, preparing meals, shopping, managing finances, etc.?: No Are you currently unemployed and looking for a job?: No Are you interested in more education?: No Please select the resources that you would like help with: None Currently or been in a relationship where the following occur: No concerns reported THRIVE Score: 0 AUDIT C Alcohol Use Questionnaire (AUDIT-C) 1. How often do you have a drink containing alcohol?: Never Total Score: 0 ERNESTO-7 AMB Questionnaire ERNESTO-7 Date ERNESTO - 7 assessed: 12/27/23 Feeling nervous, anxious, or on edge: 0 = Not at all Not being able to stop or control worryin = Not at all Worrying too much about different things: 0 = Not at all Trouble relaxin = Not at all Being so restless that it is hard to sit still: 0 = Not at all Becoming easily annoyed or irritable: 0 = Not at all Feeling afraid as if something awful might happen: 0 = Not at all Total ERNESTO-7 score (0-4 normal; 5-9 mild; 10-14 moderate; 15-21 severe): 0 Source: Developed by Drs. Vidal Barone, Karyn Santacruz, Drake Mehta and colleagues, with an educational jean-claude from [employer]. Review of Systems Const Denies chills, Denies fatigue, Denies fever(s), Denies headache(s) and Denies weakness ENT Denies dizziness and Denies headache(s) Card Denies chest pain, Denies lightheadedness, Denies dyspnea and Denies other (Palpitations) Resp Denies cough, Denies dyspnea, Denies wheezing and Denies other ( shortness of breath) Musc Denies numbness and Denies tingling Neuro Denies dizziness, Denies headache(s), Denies numbness, Denies tingling, Denies paresthesias and Denies weakness Psych Denies anxiety and Denies depression Endo Denies fatigue Aller/Immun Denies wheezing Physical exam (Primary Care) Vital Signs: Last Vital Signs Temp 97.3 F 12/15/24 14:59 Pulse 67 12/15/24 14:59 Resp 14 12/15/24 14:59 BP 110/70 12/15/24 14:59 Pulse Ox 97 12/15/24 14:59 Oxygen Delivery Method Room Air 12/15/24 14:59 BMI result Body Mass Index 27.8 Tobacco/Smoking Status: Tobacco use Status Tobacco use date assessed 12/27/23 12/15/24 15:03 Patient Tobacco Use Status Never used Tobacco 12/15/24 15:03 e-Cigarette/Vaping Use Never Used 12/15/24 15:03 PHQ-9: PHQ-9 Score PHQ-9: Total score 0 12/15/24 15:20 Thrive Assessment: Date of Thrive Assessment Date Thrive assessed 12/27/23 12/15/24 15:03 Currently or been in a relationship where the following occur: No concerns reported Const General: no acute distress and well developed Nutritional Appearance: well nourished Orientation/consciousness: patient oriented x3 [facility] Head: Yes normocephalic and Yes atraumatic Eyes General: appearance normal, both eyes and all related structures Pupils: Equal, round and reactive pupils present EOM: EOMs intact bilaterally Resp Effort & Inspection: normal respiratory effort Auscultation: clear to auscultation bilaterally Cardio Rate: regular rate Rhythm: regular rhythm Heart sounds: S1 normal heart sound present, S2 normal heart sound present, no gallops, no murmurs and no rubs Neuro General: patient oriented x3 and gait normal Cranial nerves: Yes Equal, round and reactive pupils present Psych Affect: normal affect Coding Level of Care Code Est Pt Level 4 (86043) Diagnoses Pneumonia of left lower lobe due to infectious organism J18.9 Pneumonia type: due to unspecified organism Influenza J11.1 Rash R21 Neoplasm of uncertain behavior of skin D48.5 Assessment & Plan Assessment & Plan (1) LLL pneumonia: Code(s): J18.9 - Pneumonia, unspecified organism Category: Medical Qualifiers: Pneumonia type: due to unspecified organism Qualified Code(s): J18.9 - Pneumonia, unspecified organism Plan: Left?lower?lobe?pneumonia?seen?on?chest?x-ray?at?walk-in?last?month. Patient?finished?antibiotic?and?is?feeling?well.??Breathing?easily?but?notes?some changes?in?his?breathing?when?he?also?has?sinus?issues. Chest?x-ray?is?already?ordered?and?he?will?get?this?done?later?this?week. I?will?call?him?if?action?is?required. Appears?resolved.??Will?follow-up?on?chest?x-ray (2) Influenza: Code(s): J11.1 - Influenza due to unidentified influenza virus with other respiratory manifestations Category: Medical Plan: Patient?took?Tamiflu As?above,?feeling?well (3) Rash: Code(s): R21 - Rash and other nonspecific skin eruption Category: Medical Plan: Rash?associated?with?heat Also?has?significantly?dry?skin Use?moisturizer Consider?cooler?showers If?not?improving?could?try?an?empiric?antifungal?cream (4) Neoplasm of uncertain behavior of skin: Code(s): D48.5 - Neoplasm of uncertain behavior of skin Category: Medical Plan: Sun?damaged?skin?in?sun?exposure. Patient?does?have some?small?melanotic?lesions?on?scalp Referred?to?dermatology Orders: Orders Comprehensive Royal. Panel Fast Today Z00.00 - Encounter for general adult medical examination without abnormal findings Complete Blood Count Auto Diff Today Z00.00 - Encounter for general adult medical examination without abnormal findings Prostate Specific Antigen Scr Today Z12.5 - Encounter for screening for malignant neoplasm of prostate Lipid Panel Today Z00.00 - Encounter for general adult medical examination without abnormal findings UA and rflx microscopic Today Z00.00 - Encounter for general adult medical examination without abnormal findings Microalbumin, Random (w Creat) Today I10 - Essential (primary) hypertension TSH reflex Free T4 Today Z00.00 - Encounter for general adult medical examination without abnormal findings Referrals Dermatology Referral D48.5 - Neoplasm of uncertain behavior of skin
[2024-12-15 14:59] VITALS: BP 110/70; PULSE 67; RESP 14; TEMP 36.3; O2SAT 97; BMI 27.8
== END 2024-12-15 15:32 | disposition home or self-care (01) ==
PROVIDERS: PCP Family Medicine; Visit Provider Family Medicine
DX: J18.9 Pneumonia, unspecified organism (principal); J11.1 Influenza due to unidentified influenza virus with other respiratory manifestations; R21 Rash and other nonspecific skin eruption; D48.5 Neoplasm of uncertain behavior of skin

== ENCOUNTER → 2024-12-15 14:44 | Outpatient (BNVA) | payer MEDICARE, OTHER, SELFPAY | PROVIDERS: PCP Family Medicine; Visit Provider Family Medicine | DX: J18.9 Pneumonia, unspecified organism (principal); J11.1 Influenza due to unidentified influenza virus with other respiratory manifestations; R21 Rash and other nonspecific skin eruption; D48.5 Neoplasm of uncertain behavior of skin | CPT/HCPCS: 99212 ==

== ENCOUNTER 2025-05-06 08:39 | Outpatient (AMB) | payer MEDICARE, OTHER, SELFPAY ==
--- NOTE | 2025-05-06 09:07 | MHC.PC.OV ---
Vital Signs 05/06/25 09:10 Height 5 ft 9 in Weight 183 lb 8 oz BMI 27.1 BP 120/60 Blood Pressure Location Rt brachial Position Sitting Respiration 14 Pulse 67 Pulse Source Pulse Oximeter Temp 97.7 F Temp Source Oral Pulse Oximetry (%) 96 Oxygen Delivery Method Room Air Intake Visit Reasons: Extended exam Allergies bee venom protein (honey bee) Allergy (Intermediate, Verified 05/06/25 09:09) swelling Medication List - Last Reconciled 05/06/25 by Mo Alston MD albuterol sulfate 90 mcg/actuation 2 puffs inhalation Q4-6H PRN 30 days comp.stocking,knee,long,medium 30-40 mmHg Daily As directed, 90 days fluticasone propionate 50 mcg/actuation (Flonase Allergy Relief) 1 spray intranasal Q12H 30 days ibuprofen 800 mg PO TID PRN 30 days omeprazole 20 mg PO DAILY 90 days Tobacco use date assessed: 12/27/23 Fall risk assessment: No Falls in past year Last assessed Fall Risk: 05/06/25 Dental Screening Dental Screen Date: 05/06/25 Did you have a dental visit in the last 12 months?: No Did you have a dental problem in the last 6 months where you did not have access to dental care?: No Was dental information given to patient?: Patient has dentist HPI Extended exam HPI Details 69 y/o male presents for an extended exam with f/u labs and health maint. No recent labs to review. Cologuard 01/28/24 negative. Reports hx of pneumonia earlier this week - does have rhonchi bilateral lower lung stoner. [facility] Medical History Plantar fasciitis, bilateral Elevated fasting blood sugar GERD (gastroesophageal reflux disease) Umbilical hernia Obstructive sleep apnea HTN (hypertension) Surgical History H/O umbilical hernia repair (04/16/23) History of uvulopalatopharyngoplasty History of surgery H/O colonoscopy History of appendectomy (1973) History of sinus surgery History of tonsillectomy Family History Father Leukemia CVD (cardiovascular disease) Mother Leukemia Sister No problems noted. Son No problems noted. Son No problems noted. Daughter No problems noted. Brother Stroke Brother No problems noted. Brother No problems noted. Brother No problems noted. Brother No problems noted. Social History (Reviewed 05/06/25 @ 09:09 by Jayson Davis [facility] [place]) Housing: House Are you a primary care management coordinator to a significant other at home: No Do you presently have visiting nurse or other home services: No Alcohol intake: never Patient Tobacco Use Status: Never used Tobacco e-Cigarette/Vaping Use: Never Used Second Hand Smoke Exposure: No service: No Current occupational status: retired Current occupational exposures/hazards: No Cognitive needs: No Hearing needs: No Vision needs: No Questionnaire PHQ-9 Over the last 2 weeks, how often have you been bothered by any of the following problems? 1. Little interest or pleasure in doing things: not at all 2. Feeling down, depressed, or hopeless: not at all 3. Trouble falling or staying asleep, or sleeping too much: not at all 4. Feeling tired or having little energy: not at all 5. Poor appetite or overeating: not at all 6. Feeling bad about yourself - or that you are a failure or have let yourself or your family down: not at all 7. Trouble concentrating on things, such as reading the newspaper or watching television: not at all 8. Moving or speaking so slowly that other people could have noticed. Or the opposite - being so fidgety or restless that you have been moving around a lot more than usual: not at all 9. Thoughts that you would be better off or of hurting yourself in some way: not at all Total score: 0 Depression Screening Interpretation: Negative Depression Screening Done: Yes 24301 - PHQ-9 Billing: Yes Source: Developed by Drs. Vidal Barone, Karyn Santacruz, Drake Mehta and colleagues, with an educational jean-claude from [employer]. Thrive Questionnaire Date Thrive assessed: 05/06/25 I am a: Patient What is your living situation today?: I have a steady place to live Within the past 12 months, did the food you bought not last and you didn't have the money to get more?: Never true Within the past 12 months, did you worry whether your food would run out before you got money to buy more?: Never true Do you have trouble paying for medicines?: No Do you have trouble getting transportation to medical appointments?: No Do you have trouble paying your heating and electricity bill?: No Do you have trouble taking care of your child, family member or friend?: No Do you have trouble with day-to-day activities such as bathing, preparing meals, shopping, managing finances, etc.?: No Are you currently unemployed and looking for a job?: No Are you interested in more education?: No Please select the resources that you would like help with: None Currently or been in a relationship where the following occur: No concerns reported THRIVE Score: 0 AUDIT C Alcohol Use Questionnaire (AUDIT-C) 1. How often do you have a drink containing alcohol?: Never Total Score: 0 Score Reviewed/Action Taken: Yes ERNESTO-7 AMB Questionnaire ERNESTO-7 Date ERNESTO - 7 assessed: 05/06/25 Feeling nervous, anxious, or on edge: 0 = Not at all Not being able to stop or control worryin = Not at all Worrying too much about different things: 0 = Not at all Trouble relaxin = Not at all Being so restless that it is hard to sit still: 0 = Not at all Becoming easily annoyed or irritable: 0 = Not at all Feeling afraid as if something awful might happen: 0 = Not at all Total ERNESTO-7 score (0-4 normal; 5-9 mild; 10-14 moderate; 15-21 severe): 0 Source: Developed by Drs. Vidal Barone, Karyn Santacruz, Drake Mehta and colleagues, with an educational jean-claude from [employer]. ERNESTO-7 Assessment Billing ERNESTO-7 Assessment Tool: ERNESTO-7 Assessment 07419 Review of Systems Const Denies chills, Denies fatigue, Denies fever(s), Denies headache(s) and Denies weakness Eyes Denies change in vision ENT Denies dizziness, Denies headache(s), Denies hearing loss, Denies nasal congestion, Denies sinus pain, Denies sinus pressure and Denies sore throat Card Denies chest pain, Denies lightheadedness, Denies dyspnea and Denies other (palpitations) Resp Denies cough, Denies dyspnea and Denies wheezing GI Denies abdominal pain, Denies melena, Denies hematochezia, Denies change in bowel habits, Denies dyspepsia and Denies nausea Denies hematuria and Denies dysuria Musc Denies abnormal gait, Denies myalgias, Denies arthralgias, Denies numbness and Denies tingling Skin/Breast Denies rash, Denies unusual bruising and Denies wounds Neuro Denies abnormal gait, Denies dizziness, Denies headache(s), Denies memory loss, Denies numbness, Denies Sensory deficit (Neuro), Denies tingling and Denies weakness Psych Denies anxiety, Denies depression and Denies memory loss Endo Denies cold intolerance, Denies fatigue, Denies heat intolerance, Denies polydipsia and Denies polyuria Arnol/Lymph Denies easy bleeding and Denies easy bruising Aller/Immun Denies wheezing Physical exam (Primary Care) Vital Signs: Last Vital Signs Temp 97.7 F 05/06/25 09:10 Pulse 67 05/06/25 09:10 Resp 14 05/06/25 09:10 BP 120/60 05/06/25 09:10 Pulse Ox 96 05/06/25 09:10 Oxygen Delivery Method Room Air 05/06/25 09:10 BMI result Body Mass Index 27.1 Tobacco/Smoking Status: Tobacco use Status Tobacco use date assessed 12/27/23 05/06/25 09:17 Patient Tobacco Use Status Never used Tobacco 05/06/25 09:17 e-Cigarette/Vaping Use Never Used 05/06/25 09:17 PHQ-9: PHQ-9 Score PHQ-9: Total score 0 05/06/25 09:17 Depression Screening Interpretation: Negative Thrive Assessment: Date of Thrive Assessment Date Thrive assessed 05/06/25 05/06/25 09:17 Currently or been in a relationship where the following occur: No concerns reported Const General: no acute distress, well developed, alert and awake Nutritional Appearance: well nourished Orientation/consciousness: patient oriented x3 [facility] Head: Yes normocephalic and Yes atraumatic Ears: hearing grossly normal bilaterally and TM's normal bilaterally General nose exam: Normal external nose present and Normal nares present Mouth: Normal oral and palatal mucosa present and moist mucous membranes Teeth and gingiva: dentition normal Throat: Yes posterior oropharynx normal Eyes General: appearance normal, both eyes and all related structures Pupils: Equal, round and reactive pupils present and Pupil accommodation reflex normal EOM: EOMs intact bilaterally Neck Neck: Yes normal visual inspection, Yes no lymphadenopathy and Yes trachea midline Thyroid: Thyroid normal Carotids: no bruits Lymphatic: no lymphadenopathy noted Chest Chest palpation & inspection: normal inspection of the chest Resp Other: Rhonchi bilateral lower lung stoner, L worse than R Effort & Inspection: normal respiratory effort Auscultation: not clear to auscultation bilaterally Cardio Rate: regular rate Rhythm: regular rhythm Heart sounds: S1 normal heart sound present, S2 normal heart sound present, no gallops, no murmurs and no rubs Bruits: no abdominal aortic bruits and no carotid bruits GI Palpation (GI): No Abdominal aortic bruit present, Soft to palpation, nontender, No hepatosplenomegaly present and No Rebound tenderness present Auscultation: normal bowel sounds General: Yes no CVA tenderness Back/Spine/Pelvis Back: no CVA tenderness Cervical Spine: cervical ROM normal and No Cervical spine tenderness Thoracic/Lumbar Spine: thoraco-lumbar ROM normal, No pain with thoraco-lumbar ROM, No thoracic spinal tenderness and No lumbar spinal tenderness Skin Lesions: no lesions Rashes: no rashes Trauma: no lacerations or abrasions Wounds: no wounds Nails: normal Neuro General: patient oriented x3 Cranial nerves: Yes Equal, round and reactive pupils present Cognition (Neuro): normal cognition Gait exam (Neuro): Normal gait present Motor exam (neuro): 5/5 motor strength present throughout Sensory Exam: No Sensory deficit (Neuro) Deep tendon reflexes (DTR's): Right patellar reflex intensity grade: 2+ and Left patellar reflex intensity grade: 2+ Extrem General: Yes normal to inspection and No edema Psych Appearance: grossly normal Affect: normal affect Attitude: cooperative Thought process: Normal thought process present Coding Level of Care Code Est Pt Level 4 (82229) Diagnoses Abnormal lung sounds R09.89 Screening for colon cancer Z12.11 Screening for prostate cancer Z12.5 Adult general medical examination Z00.00 Additional Codes ERNESTO-7 Assessment Billing - ERNESTO-7 Assessment Tool: ERNESTO-7 Assessment 68877 ([id number]) PHQ-9 - 15442 - PHQ-9 Billing: Yes ([id number]) Assessment & Plan Assessment & Plan (1) Abnormal lung sounds: Code(s): R09.89 - Other specified symptoms and signs involving the circulatory and respiratory systems Category: Medical Plan: Rhonchi?at?bilateral?lower?lung?stoner, left?worse?than?right History?of?pneumonia?earlier?this?year Will?send?a?Z-Myron?and?check?a?chest?x-ray Will?follow-up?with?patient?in?1-2?weeks (2) Screening for colon cancer: Code(s): Z12.11 - Encounter for screening for malignant neoplasm of colon Category: Medical Plan: Cologuard?test?last?year?was?negative?for?abnormal?DNA Will?continue?screening?in?2?more?years (3) Screening for prostate cancer: Code(s): Z12.5 - Encounter for screening for malignant neoplasm of prostate Category: Medical Plan: PSA?last?year?was?within?normal?range Due?to?repeat?this Test?ordered (4) Adult general medical examination: Code(s): Z00.00 - Encounter for general adult medical examination without abnormal findings Category: Medical Plan: 69-year-old?male?presents?for an?extended?exam Orders: Orders XR chest 2V Today R09.89 - Other specified symptoms and signs involving the circulatory and respiratory systems Referrals Sleep Medicine Referral G47.33 - Obstructive sleep apnea (adult) (pediatric) Medications: New azithromycin (Zithromax Z-Myron) take 500 mg today (day 1), then 250 mg for 4 days (days 2-5) PO 6 tabs 0RF 5 days R09.89 - Other specified symptoms and signs involving the circulatory and respiratory systems
[2025-05-06 09:10] VITALS: BP 120/60; PULSE 67; RESP 14; TEMP 36.5; O2SAT 96; BMI 27.1
== END 2025-05-06 09:38 | disposition home or self-care (01) ==
LOC: HO.HMCFM 08:40
PROVIDERS: PCP Family Medicine; Visit Provider Family Medicine
DX: R09.89 Other specified symptoms and signs involving the circulatory and respiratory systems (principal); Z12.11 Encounter for screening for malignant neoplasm of colon; Z12.5 Encounter for screening for malignant neoplasm of prostate; Z00.00 Encounter for general adult medical examination without abnormal findings

== ENCOUNTER 2025-05-06 08:39 | Outpatient (REF) | payer MEDICARE, OTHER, SELFPAY ==
--- NOTE | ~2025-05-06 | XR_ITS ---
CLINICAL HISTORY: R09.89 - Other specified symptoms and signs involving the circulatory an... 2 views chest Comparison: None Findings: Cardiac and mediastinal contours are normal. Mild interstitial prominence with scattered peribronchial thickening. No focal consolidation. No effusion. No pneumothorax. No acute osseous finding. Impression: Mild interstitial prominence with scattered peribronchial thickening. No focal consolidation. This document has been electronically signed by: Vinod Reed MD on 05/06/2025 11:04:15
== END 2025-05-06 08:40 | disposition home or self-care (01) ==
LOC: HO.XRAY 08:39
PROVIDERS: PCP Family Medicine; Visit Provider Family Medicine
DX: Z00.00 Encounter for general adult medical examination without abnormal findings (principal); R09.89 Other specified symptoms and signs involving the circulatory and respiratory systems; Z13.31 Encounter for screening for depression; Z13.39 Encounter for screening examination for other mental health and behavioral disorders
CPT/HCPCS: 71046; 96127; 99212

== ENCOUNTER 2025-05-06 09:44 | Outpatient (REF) | payer MEDICARE, OTHER, SELFPAY ==
[2025-05-06 11:08] LABS: Appearance Urine Clear; Glucose Urine UA Negative (Negative); PH 6.0 (5.0-9.0); Specific Gravity - Urine 1.025 (1.005-1.025)
[2025-05-06 11:57] LABS: MANUAL DIFF FLAG NO
[2025-05-06 12:01] LABS: Hematocrit 48.8 % (42.0-52.0); Hemoglobin 17.1 g/dl (14.0-18.0); Imm Gran Abs Auto 0.02 X10*3/uL (0.00-0.03); Imm Gran Pct Auto 0.4 % (0.0-0.4); Lymphocytes Absolute Auto 1.7 X10*3/uL (1.2-4.9); Mean Corpuscular HGB Conc 35.0 g/dl (31.0-36.0); Mean Corpuscular Hemoglobin 31.5 pg (27.0-33.0); Mean Corpuscular Volume 89.9 fL (80.0-98.0); NRBC Abs Auto 0.000 X10*3/uL (0.0-0.012); NRBC Pct Auto 0.0 /100WBC (0.0-0.2); Platelet Count 240 X10*3/uL (160-400); Red Blood Count 5.43 X10*6/uL (4.60-5.80); White Blood Count 5.4 X10*3/uL (4.8-10.8)
[2025-05-06 12:32] LABS: Alanine Aminotransferase 21 U/L (0-40); Albumin Level 4.4 g/dL (3.5-5.0); Alkaline Phosphatase 76 U/L (39-117); Anion Gap 12 (12-20); Aspartate Amino Transferase 29 U/L (5-37); Blood Urea Nitrogen 20 mg/dL (9-16); Calcium 9.3 mg/dL (8.4-10.2); Carbon Dioxide 27 mmol/L (22-29); Chloride 104 mmol/L (96-108); Cholesterol 160 mg/dL (<200); Estimated Glomerular Filt Rate > 60; HDL Cholesterol 40 mg/dL (>40); Potassium 3.5 mmol/L (3.3-5.1); Sodium 139 mmol/L (135-145); Total Protein 7.0 g/dL (6.5-8.0); Triglycerides 153 mg/dL (<150)
[2025-05-06 12:57] LABS: Microalbum/Creatinine Ratio Ur 2.6 ug/mg cr (<30)
== END 2025-05-06 09:45 | disposition home or self-care (01) ==
LOC: HO.WFDLDS 09:44
PROVIDERS: Visit Provider Family Medicine
DX: Z00.00 Encounter for general adult medical examination without abnormal findings (principal); Z12.5 Encounter for screening for malignant neoplasm of prostate; I10 Essential (primary) hypertension
CPT/HCPCS: 36415; 80053; 80061; 81003; 82043; 82570; 84153; 84443; 85025

== ENCOUNTER → 2025-05-06 10:32 | Outpatient (BNV) | payer MEDICARE, OTHER, SELFPAY | PROVIDERS: PCP Family Medicine; Visit Provider Radiology Vascular & Interventional Radiology | DX: R09.89 Other specified symptoms and signs involving the circulatory and respiratory systems (principal) | CPT/HCPCS: 71046 ==

== ENCOUNTER 2025-05-18 13:47 | Outpatient (AMB) | payer MEDICARE, OTHER, SELFPAY ==
--- NOTE | 2025-05-18 13:44 | A.OFFPC_ITS ---
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 Had ordered a chest x-ray which appears to show some inflammatory changes and likely resolving/resolved pneumonia He has continued to gradually feel better Reviewed labs with patient Triglycerides are elevated and HDL is borderline. Fasting blood sugar is elevated Patient feels well today. No new complaints. [facility] Medical History Plantar fasciitis, bilateral Elevated fasting blood sugar GERD (gastroesophageal reflux disease) Umbilical hernia Obstructive sleep apnea HTN (hypertension) Surgical History H/O umbilical hernia repair (04/16/23) History of uvulopalatopharyngoplasty History of surgery H/O colonoscopy History of appendectomy (1973) History of sinus surgery History of tonsillectomy Family History Father Leukemia CVD (cardiovascular disease) Mother Leukemia Sister No problems noted. Son No problems noted. Son No problems noted. Daughter No problems noted. Brother Stroke Brother No problems noted. Brother No problems noted. Brother No problems noted. Brother No problems noted. Social History Housing: House Are you a primary health care consultant to a significant other at home: No Do you presently have visiting nurse or other home services: No Alcohol intake: never Patient Tobacco Use Status: Never used Tobacco e-Cigarette/Vaping Use: Never Used Second Hand Smoke Exposure: No service: No Current occupational status: retired Current occupational exposures/hazards: No Cognitive needs: No Hearing needs: No Vision needs: No Questionnaire Thrive Questionnaire Date Thrive assessed: 05/06/25 ERNESTO-7 AMB Questionnaire ERNESTO-7 Date ERNESTO - 7 assessed: 05/06/25 Source: Developed by Drs. Vidal Barone, Karyn Santacruz, Drake Mehta and colleagues, with an educational jean-claude from [employer]. Review of Systems Const Denies chills, Denies fatigue, Denies fever(s), Denies headache(s) and Denies weakness ENT Denies dizziness and Denies headache(s) Card Denies chest pain, Denies lightheadedness, Denies dyspnea and Denies other (Palpitations) Resp Denies cough, Denies dyspnea, Denies wheezing and Denies other ( shortness of breath) Musc Denies numbness and Denies tingling Neuro Denies dizziness, Denies headache(s), Denies numbness, Denies tingling, Denies paresthesias and Denies weakness Psych Denies anxiety and Denies depression Endo Denies fatigue Aller/Immun Denies wheezing Physical exam (Primary Care) Tobacco/Smoking Status: Tobacco use Status Tobacco use date assessed 12/27/23 05/18/25 13:44 Patient Tobacco Use Status Never used Tobacco 05/18/25 13:44 e-Cigarette/Vaping Use Never Used 05/18/25 13:44 Thrive Assessment: Date of Thrive Assessment Date Thrive assessed 05/06/25 05/18/25 13:44 Telehealth Telehealth Telehealth Platform: Telephone Location of provider rendering services: practice address Location of patient: address on file Patient Identification confirmed using: Name, : Yes Telehealth method: voice only Patient verbally consented to treatment: Yes Patient verbally consented to billing insurance company: Yes Patient informed of any privacy concerns related to visit: Yes Minutes spent on Phone/Video with Pt.: 8 Coding Level of Care Code Tele Est Pt Level 2 (17857) Diagnoses Low HDL (under 40) E78.6 Elevated fasting blood sugar R73.01 Pneumonia of left lower lobe due to infectious organism J18.9 Pneumonia type: due to unspecified organism Dermatitis L30.9 Assessment & Plan Assessment & Plan (1) Low HDL (under 40): Code(s): E78.6 - Lipoprotein deficiency Category: Medical Plan: Borderline Triglycerides are high Encouraged diet low in saturated fats and cholesterol Encouraged exercise Will continue to monitor periodically (2) Elevated fasting blood sugar: Code(s): R73.01 - Impaired fasting glucose Category: Medical Plan: Fasting blood sugars are elevated Will recheck A1c with next blood draw and review with patient (3) LLL pneumonia: Code(s): J18.9 - Pneumonia, unspecified organism Category: Medical Qualifiers: Pneumonia type: due to unspecified organism Qualified Code(s): J18.9 - Pneumonia, unspecified organism Plan: Patient had had a pneumonia and was treated but still had significant shortness of breath and abnormal lung sounds Gave him a Z-Myron. Patient says he began feeling better and is still gradually improving. He will know if his condition worsens or improvement stalls (4) Dermatitis: Code(s): L30.9 - Dermatitis, unspecified Category: Medical Plan: Had referred patient to dermatology but he has not had an appointment I gave him the phone number today Medications: Refilled ibuprofen 800 mg PO TID PRN 90 tabs 1RF pain 30 days
== END 2025-05-18 17:05 | disposition home or self-care (01) ==
LOC: HO.HMCFM 13:47
PROVIDERS: PCP Family Medicine; Visit Provider Family Medicine
DX: E78.6 Lipoprotein deficiency (principal); R73.01 Impaired fasting glucose; J18.9 Pneumonia, unspecified organism; L30.9 Dermatitis, unspecified

== ENCOUNTER 2025-07-14 14:32 | Outpatient (AMB) | payer MEDICARE, OTHER, SELFPAY ==
--- NOTE | 2025-07-14 14:37 | A.OFFVIS_ITS ---
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 Last seen 09/2023. Patient machine dies about year ago. Patient uses CPAP(hasn't used it in about 6weeks) but machine is his sisters. Not sure when last sleep study was. Accompanied by: Self / Same As Patient Allergies bee venom protein (honey bee) Allergy (Intermediate, Verified 07/14/25 14:41) swelling HPI Comments Details: 70 year-old male with obstructive sleep apnea presents for an evaluation of sleep difficulties. Nov 2021 AHI was 10.8 per hour and the lowest oxygen was 84%, start cpap 5-20cm H20. He is currently using his sister's cpap machine, since his cpap machine stopped working over one year ago. He has been non- compliant due to traveling and is unable to use this new machine. He is not familiar with the sister's cpap machine and is unable to figure out the settings so he gets frustrated. He snores loudly, gasps for air. He goes to bed at midnight to 1am and wakes up at 6am to 9am. He has one bathroom break. He denies morning headaches, bruxism or jaw pain. He denies symptoms of RLS, his toes get stiff, and cramp, he jumps out of the bed and stands on his feet to straighten it out. 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 He uses a pillow in between his feet as he is a side sleeper. 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 Mood is relaxed, Memory is stable. Diet is good. When he had his cpap he used to feel refreshed during the daytime and slept comfortably. I do not have compliance data today. His cpap /DME company is [employer]. [facility] Medical History Plantar fasciitis, bilateral Elevated fasting blood sugar GERD (gastroesophageal reflux disease) Umbilical hernia Obstructive sleep apnea HTN (hypertension) Surgical History H/O umbilical hernia repair (04/16/23) History of uvulopalatopharyngoplasty History of surgery H/O colonoscopy History of appendectomy (1973) History of sinus surgery History of tonsillectomy Family History Father Leukemia CVD (cardiovascular disease) Mother Leukemia Sister No problems noted. Son No problems noted. Son No problems noted. Daughter No problems noted. Brother Stroke Brother No problems noted. Brother No problems noted. Brother No problems noted. Brother No problems noted. Social History Housing: House Are you a primary care team coordinator scheduler to a significant other at home: No Do you presently have visiting nurse or other home services: No Alcohol intake: never Patient Tobacco Use Status: Never used Tobacco e-Cigarette/Vaping Use: Never Used Second Hand Smoke Exposure: No service: No Current occupational status: retired Current occupational exposures/hazards: No Cognitive needs: No Hearing needs: No Vision needs: No Physical Exam Vital Signs: Last Vital Signs Pulse 71 07/14/25 14:38 BP 120/74 07/14/25 14:38 Pulse Ox 94 07/14/25 14:38 Oxygen Delivery Method Room Air 07/14/25 14:38 BMI result Body Mass Index 27.7 Const General: cooperative, comfortable and no acute distress Nutritional Appearance: average body habitus Orientation/consciousness: patient oriented x3 HEENT Face and sinus: Yes face symmetric Teeth and gingiva: other (Mallampti score is 4) Eyes Pupils: Equal, round and reactive pupils present Neck Neck: Yes full ROM Resp Effort & Inspection: normal respiratory effort and able to speak in complete sentences Neuro General: patient oriented x3 and moves all extremities Cranial nerves: Yes Equal, round and reactive pupils present, Yes Normal accommodation reflex present, Yes Normal facial strength present, Yes Ability to bilaterally rotate head present and Yes Ability to bilaterally elevate shoulders present Gait exam (Neuro): Normal gait present Motor exam (neuro): 5/5 motor strength present throughout and Normal motor muscle tone present throughout Psych Appearance: grossly normal Speech and movement: Normal speech and movement present Thought process: Normal thought process present Thought content: Normal thought content present Results Reviewed Results Reviewed: Nov 2021 AHI was 10.8 per hour and the lowest oxygen was 84%, start cpap 5-20cm H20. Assessment & Plan Assessment & Plan (1) Snoring: Code(s): R06.83 - Snoring Category: Medical (2) Obstructive sleep apnea: Comment: uses CPAP Code(s): G47.33 - Obstructive sleep apnea (adult) (pediatric) Category: Medical Plan HST to r/o uzair h/o uvulectomy, septoplasty for snoring. Snoring loudly. Labs to r/o fatigue Orders: Orders RT home sleep study Today G47.19 - Other hypersomnia Vitamin D 25-OH Total Today G47.19 - Other hypersomnia, G47.33 - Obstructive sleep apnea (adult) (pediatric), R06.83 - Snoring Vitamin B6 Today G47.19 - Other hypersomnia, G47.33 - Obstructive sleep apnea (adult) (pediatric), R06.83 - Snoring Vitamin B12 and Folate Today G47.19 - Other hypersomnia, G47.33 - Obstructive sleep apnea (adult) (pediatric), R06.83 - Snoring Vitamin B1 Today G47.19 - Other hypersomnia, G47.33 - Obstructive sleep apnea (adult) (pediatric), R06.83 - Snoring Ferritin Today G47.19 - Other hypersomnia, R06.83 - Snoring Methylmalonic Acid Today G47.19 - Other hypersomnia, G47.33 - Obstructive sleep apnea (adult) (pediatric), G47.9 - Sleep disorder, unspecified, R06.83 - Snoring, R53.83 - Other fatigue Homocysteine Today G47.19 - Other hypersomnia, G47.33 - Obstructive sleep apnea (adult) (pediatric), G47.9 - Sleep disorder, unspecified, R06.83 - Snoring, R53. 83 - Other fatigue Patient Instructions: Sleep Hygiene provided: set a scheduled bedtime and wake time to help regulate the circadian rhythm and balance the release of pituitary hormones. Sleep in a dark room, temperatures below 68 degrees, and no devices n bed. Limit caffeinated products 6 hours prior to bed, and limit fluids 2-4 hours prior to bed. Gentle night yoga, diffusing essential oils, and playing soft music can be relaxing. Coding Level of Care Code New Pt Level 4 (96988) Diagnoses Snoring R06.83 Obstructive sleep apnea G47.33
[2025-07-14 14:38] VITALS: BP 120/74; PULSE 71; O2SAT 94; BMI 27.7
== END 2025-07-14 15:24 | disposition home or self-care (01) ==
LOC: HO.HSMS 14:33
PROVIDERS: PCP Family Medicine; Visit Provider Physician Assistant Medical
DX: R06.83 Snoring (principal); G47.33 Obstructive sleep apnea (adult) (pediatric)
CPT/HCPCS: 99204

== ENCOUNTER → 2025-07-14 14:32 | Outpatient (BNVA) | payer MEDICARE, OTHER, SELFPAY | PROVIDERS: PCP Family Medicine; Visit Provider Physician Assistant Medical | DX: R06.83 Snoring (principal); G47.33 Obstructive sleep apnea (adult) (pediatric); Z99.89 Dependence on other enabling machines and devices | CPT/HCPCS: 99202 ==

== ENCOUNTER 2025-07-16 10:01 | Outpatient (REF) | payer MEDICARE, OTHER, SELFPAY ==
[2025-07-16 12:02] LABS: Ferritin 56 ng/mL (20-250)
[2025-07-16 12:12] LABS: Folate 9.5 ng/mL (> or = 4.0); Vitamin B12 324 pg/mL (200-900)
== END 2025-07-16 10:02 | disposition home or self-care (01) ==
LOC: HO.LAB 10:01
PROVIDERS: Visit Provider Physician Assistant Medical
DX: G47.33 Obstructive sleep apnea (adult) (pediatric) (principal); G47.19 Other hypersomnia; R53.83 Other fatigue; Z13.6 Encounter for screening for cardiovascular disorders
CPT/HCPCS: 36415; 82306; 82607; 82728; 82746; 83090; 83921; 84207; 84425

== ENCOUNTER 2025-10-27 12:42 | Outpatient (AMB) | payer MEDICARE, OTHER, SELFPAY ==
--- NOTE | 2025-10-27 12:41 | A.OFFVIS_ITS ---
Vital Signs 10/27/25 12:42 Height 5 ft 9 in Weight 187 lb 4 oz BMI 27.6 BP 120/72 Blood Pressure Location Rt brachial Position Sitting Pulse 65 Pulse Source Pulse Oximeter Pulse Oximetry (%) 97 Oxygen Delivery Method Room Air Intake Visit Reasons: 3 mo follow up Intake Note: Patient presents follow up FRED. Labs in chart. 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 His last sleep study was in Nov 2021 and the AHI was 10.8 per hour, oxygen nadirs to 84%, recommended to start cpap [id number]. 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 When he had his cpap machine, he used to feel refreshed during the daytime and slept comfortably.He is currently using his sister's cpap machine, since his cpap machine stopped working over one year ago. He has been non- compliant due to traveling and is unable to use this new machine. He is not familiar with the sister's cpap machine and is unable to figure out the settings so he gets frustrated. He snores loudly, gasps for air. He goes to bed at midnight to 1am and wakes up at 6am to 9am. He has one bathroom break. He denies morning headaches, bruxism or jaw pain. He denies symptoms of RLS, his toes get stiff bilaterally then he has cramps in his arches, he jumps out of the bed and stands on his feet to straighten the foot out. 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 He uses a pillow in between his knee as he is a side sleeper and this helps to alleviate the pressure off of his hips. His mood is relaxed. Memory is good. Diet is good. [facility] Medical History Plantar fasciitis, bilateral Elevated fasting blood sugar GERD (gastroesophageal reflux disease) Umbilical hernia Obstructive sleep apnea HTN (hypertension) Surgical History H/O umbilical hernia repair (04/16/23) History of uvulopalatopharyngoplasty History of surgery H/O colonoscopy History of appendectomy (1973) History of sinus surgery History of tonsillectomy Family History Father Leukemia CVD (cardiovascular disease) Mother Leukemia Sister No problems noted. Son No problems noted. Son No problems noted. Daughter No problems noted. Brother Stroke Brother No problems noted. Brother No problems noted. Brother No problems noted. Brother No problems noted. Social History Housing: House Are you a primary critical care registered nurse to a significant other at home: No Do you presently have visiting nurse or other home services: No Alcohol intake: never Patient Tobacco Use Status: Never used Tobacco e-Cigarette/Vaping Use: Never Used Second Hand Smoke Exposure: No service: No Current occupational status: retired Current occupational exposures/hazards: No Cognitive needs: No Hearing needs: No Vision needs: No Physical Exam Vital Signs: Last Vital Signs Pulse 65 10/27/25 12:42 BP 120/72 10/27/25 12:42 Pulse Ox 97 10/27/25 12:42 Oxygen Delivery Method Room Air 10/27/25 12:42 BMI result Body Mass Index 27.6 Const General: cooperative, comfortable and no acute distress Nutritional Appearance: average body habitus Orientation/consciousness: patient oriented x3 HEENT Face and sinus: Yes face symmetric Teeth and gingiva: other (mallampti score is 3) Eyes Pupils: Equal, round and reactive pupils present Neck Neck: Yes full ROM Resp Effort & Inspection: normal respiratory effort and able to speak in complete sentences Neuro General: patient oriented x3 and moves all extremities Cranial nerves: Yes Equal, round and reactive pupils present, Yes Normal accommodation reflex present and Yes Normal facial strength present Cognition (Neuro): normal cognition Gait exam (Neuro): Normal gait present Motor exam (neuro): 5/5 motor strength present throughout and Normal motor muscle tone present throughout Psych Appearance: grossly normal Speech and movement: Normal speech and movement present Attitude: cooperative Results Reviewed Results Reviewed: labs Assessment & Plan Assessment & Plan (1) Obstructive sleep apnea: Comment: uses CPAP (sister's machine) no data Code(s): G47.33 - Obstructive sleep apnea (adult) (pediatric) Category: Medical (2) Snoring: Code(s): R06.83 - Snoring Category: Medical Plan HST to r/o fred recent h/o uvulectomy, and septoplasty for snoring. Snoring loudly. Labs to r/o fatigue. B12/low/ normal. Patient Instructions: Please complete the following fasting labs to rule out deficiencies. CBC/CMP/ B12/ Vit D/ TSH/ Homocysteine and MMA/ Ferritin. Sleep Hygiene provided: set a scheduled bedtime and wake time to help regulate the circadian rhythm and balance the release of pituitary hormones. Sleep in a dark room, temperatures below 68 degrees, and no devices n bed. Limit caffeinated products 6 hours prior to bed, and limit fluids 2-4 hours prior to bed. Gentle night yoga, diffusing essential oils, and playing soft music can be relaxing. Coding Level of Care Code New Pt Level 4 (49999) Diagnoses Obstructive sleep apnea G47.33 Snoring R06.83
[2025-10-27 12:42] VITALS: BP 120/72; PULSE 65; O2SAT 97; BMI 27.6
== END 2025-10-27 13:31 | disposition home or self-care (01) ==
LOC: HO.HSMS 12:43
PROVIDERS: PCP Family Medicine; Visit Provider Physician Assistant Medical
DX: G47.33 Obstructive sleep apnea (adult) (pediatric) (principal); R06.83 Snoring
CPT/HCPCS: 99214

== ENCOUNTER → 2025-10-27 12:42 | Outpatient (BNVA) | payer MEDICARE, OTHER, SELFPAY | PROVIDERS: PCP Family Medicine; Visit Provider Physician Assistant Medical | DX: G47.33 Obstructive sleep apnea (adult) (pediatric) (principal); Z99.89 Dependence on other enabling machines and devices; R06.83 Snoring | CPT/HCPCS: 99212 ==

== ENCOUNTER → 2025-10-28 12:48 | Outpatient (REF) | payer MEDICARE, OTHER, SELFPAY | LOC: HO.SL 12:48 | PROVIDERS: PCP Family Medicine; Visit Provider Physician Assistant Medical | DX: G47.19 Other hypersomnia (principal) | CPT/HCPCS: 95806 ==

== ENCOUNTER → 2025-10-28 13:08 | Outpatient (BNV) | payer MEDICARE, OTHER, SELFPAY | PROVIDERS: PCP Family Medicine; Visit Provider Psychiatry & Neurology Neurology | DX: G47.33 Obstructive sleep apnea (adult) (pediatric) (principal) | CPT/HCPCS: 95806 ==